=== PATIENT | male | born 1935 | race Caucasian/White ===

== ENCOUNTER 2018-07-12 02:35 | Inpatient (IN) | payer MEDICARE, BC ==
[2018-07-12] MEDS ORDERED: Nitroglycerin 2% Oint 1 GM UD Packet TOP ONE (03:03)
[2018-07-12] MEDS ORDERED: Aspirin 81 MG Tab.Chew PO ONE (03:03)
[2018-07-12] MEDS ORDERED: Sodium Chloride 0.9% 10 ML Syringe FLUSH PRN (03:03)
[2018-07-12] MEDS ORDERED: Meclizine 12.5 MG Tab PO ONE (03:03)
[2018-07-12] MEDS ORDERED: Ondansetron 4 MG/2 ML SDV IVPUSH ONE (03:03)
--- NOTE | 2018-07-12 03:04 | EDM.PDOC ---
ED HPI GENERAL MEDICAL PROBLEM - General Chief Complaint: Cardiovascular Problem Stated Complaint: DIZZY/NAUSEA Time Seen by Provider: 07/12/18 02:50 Source of Information: Reports: Patient, RN Notes Reviewed - History of Present Illness INITIAL COMMENTS - FREE TEXT/NARRATIVE: 82 year old male had onset of vertigo type dizziness a few hours ago associated with nausea, chest tightness. He does feel better now after arrival to ED. Hx of aortic valve replacement and aneurysm repair about 14 yrs ago. Takes baby aspirin along with his other meds daily. No abd pain. Has not vomited. No radiation of discomfort to chest, shoulder, arm or back. Chest Pain Score (Numeric/FACES): 5 - Related Data Allergies Allergy/AdvReac Type Severity Reaction Status Date / Time No Known Allergies Allergy Verified 07/12/18 02:49 Home Meds: Home Meds Aspirin [Halfprin] 81 mg PO DAILY 10/22/14 [History] Cyanocobalamin (Vitamin B12) [Vitamin B12] 1,000 mcg PO DAILY 10/22/14 [History] Donepezil HCl [Aricept] 10 mg PO BEDTIME 10/22/14 [History] Finasteride [Proscar] 5 mg PO DAILY 10/22/14 [History] Fish Oil/DHA/EPA [Fish Oil 1,200 MG] 1,200 mg PO DAILY 10/22/14 [History] Escitalopram [Lexapro] 20 mg PO BEDTIME 07/12/18 [History] Non-Formulary Medication [NF Drug] 1 cap PO DAILY 07/12/18 [History] Non-Formulary Medication [NF Drug] 1 tab PO BID 07/12/18 [History] Non-Formulary Medication [NF Drug] 1 tab PO BID 07/12/18 [History] Past Medical History HEENT History: Reports: Other (See Below) Other HEENT History: corneal abrasion Genitourinary History: Reports: BPH, Chronic Renal Insuffiency, Pyelonephritis, UTI, Recurrent Neurological History: Reports: Alzheimers Disease Other Neuro History: on aricept Other Dermatologic 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 Denies: Throat Pain Respiratory: Denies: Shortness of Breath, Pleuritic Chest Pain Cardiovascular: Reports: Chest Pain (gone) GI/Abdominal: Reports: Diarrhea (had 1 or 2 loose stools), Nausea. Denies: Abdominal Pain, Vomiting Musculoskeletal: Denies: Neck Pain, Shoulder Pain, Arm Pain, Back Pain Skin: Reports: No Symptoms Neurological: Reports: Dizziness (now much better). Denies: Trouble Speaking, Difficulty Walking ED EXAM, GENERAL - Physical Exam Exam: See Below General Appearance: Alert, Anxious (mild) Eye Exam: Bilateral Eye: Other (L pupil mildly irregular from prior cataract surgery) Ears: Normal External Exam, Other (small amt of fluid posterior to R TM) Throat/Mouth: Normal Inspection, Normal Oropharynx Head: Atraumatic. No: Facial Swelling Neck: Supple, Full Range of Motion, Other (no JVD) Respiratory/Chest: No Respiratory Distress, Lungs Clear, Normal Breath Sounds Cardiovascular: Regular Rate, Rhythm GI/Abdominal: Soft, Non-Tender. No: Guarding Extremities: Normal Inspection. No: Pedal Edema, Leg Pain, Increased Warmth, Redness Neurological: Alert, Oriented, No Motor/Sensory Deficits Skin Exam: Warm, Dry, Normal Color EKG INTERPRETATION EKG Date: 07/12/18 Rhythm: NSR [place]: Normal P-Wave: Present QRS: Other (there are q waves inf. leads) ST-T: Normal Course - Vital Signs Last Recorded V/S: Last Vital Signs Temp 98.8 F 07/12/18 23:22 Pulse 68 07/12/18 23:22 Resp 12 07/12/18 23:22 BP 148/87 H 07/12/18 23:22 Pulse Ox 94 L 07/12/18 23:22 - Orders/Labs/Meds Orders: Active Orders 24 hr Category Date Time Status Sodium Chloride 0.9% [Saline Flush] Med 07/12/18 03:03 Active 10 ml FLUSH ASDIRECTED PRN Peripheral IV Insertion Adult [OM.PC] Stat Oth 07/12/18 03:02 Ordered Medication Orders Aspirin (Halfprin) 81 mg PO DAILY AUNDREA Citalopram Hydrobromide (Celexa) 40 mg PO BEDTIME AUNDREA Last Admin: 07/12/18 21:06 Dose: 40 mg Cyanocobalamin (Vitamin B12) 1,000 mcg PO DAILY [facility] Donepezil HCl (Aricept) 10 mg PO BEDTIME [facility] Last Admin: 07/12/18 21:06 Dose: 10 mg Enoxaparin Sodium (Lovenox) 40 mg SUBCUT Q24H [facility] [place] Last Admin: 07/12/18 21:05 Dose: 40 mg Finasteride (Proscar) 5 mg PO DAILY [facility] Fish Oil (Fish Oil) 1 gm PO DAILY [facility] [place] Sodium Chloride (Saline Flush) 10 ml FLUSH ASDIRECTED PRN PRN Reason: Keep Vein Open Last Admin: 07/12/18 03:18 Dose: 10 ml Labs: Laboratory Tests 07/12/18 07/12/18 07/12/18 Range/Units 02:45 02:45 05:35 WBC 6.27 (4.23-9.07) K/mm3 RBC 4.37 L (4.63-6.08) M/mm3 Hgb 12.9 L (13.7-17.5) gm/L Hct 40.3 (40.1-51.0) % MCV 92.2 (79.0-92.2) fl MCH 29.5 (25.7-32.2) pg MCHC 32.0 L (32.2-35.5) g/dl RDW Std Deviation 48.9 H (35.1-43.9) fL Plt Count 121 L (163-337) K/mm3 MPV 9.9 (9.4-12.3) fl Neut % (Auto) 55.5 (34.0-67.9) % Lymph % (Auto) 28.5 (21.8-53.1) % [place] % (Auto) 13.2 H (5.3-12.2) % Eos % (Auto) 2.6 (0.8-7.0) Baso % (Auto) 0.0 L (0.1-1.2) % Neut # (Auto) 3.48 (1.78-5.38) K/mm3 Lymph # (Auto) 1.79 (1.32-3.57) K/mm3 [place] # (Auto) 0.83 H (0.30-0.82) K/mm3 Eos # (Auto) 0.16 (0.04-0.54) K/mm3 Baso # (Auto) 0.00 L (0.01-0.08) K/mm3 Sodium 143 (136-145) mEq/L Potassium 4.4 (3.5-5.1) mEq/L Chloride 106 (98-107) mEq/L Carbon Dioxide 30 (21-32) mEq/L Anion Gap 11.4 (5-15) BUN 25 H (7-18) mg/dL Creatinine 1.0 (0.7-1.3) mg/dL Est Cr Clr Drug Dosing 61.70 mL/min Estimated GFR (MDRD) > 60 (>60) mL/min BUN/Creatinine Ratio 25.0 H (14-18) Glucose 110 (83-115) mg/dL Calcium 9.1 (8.5-10.1) mg/dL Total Bilirubin 0.4 (0.2-1.0) mg/dL AST 18 (15-37) U/L ALT 22 (16-63) U/L Alkaline Phosphatase 59 (46-116) U/L Troponin I < 0.017 0.036 (0.00-0.056) ng/mL Total Protein 7.3 (6.4-8.2) g/dl Albumin 3.9 (3.4-5.0) g/dl Globulin 3.4 gm/dL Albumin/Globulin Ratio 1.2 (1-2) Meds: Medications Generic Name Dose Route Start Last Admin Trade Name Freq PRN Reason Stop Dose Admin Aspirin 81 mg 07/13/18 09:00 Halfprin PO DAILY AUNDREA Citalopram Hydrobromide 40 mg 07/12/18 21:00 07/12/18 21:06 Celexa PO 40 mg BEDTIME AUNDREA Administration Cyanocobalamin 1,000 mcg 07/13/18 09:00 Vitamin B12 PO DAILY AUNDREA Donepezil HCl 10 mg 07/12/18 21:00 07/12/18 21:06 Aricept PO 10 mg BEDTIME AUNDREA Administration Enoxaparin Sodium 40 mg 07/12/18 20:00 07/12/18 21:05 Lovenox SUBCUT 40 mg Q24H AUNDREA Administration Finasteride 5 mg 07/13/18 09:00 Proscar PO DAILY AUNDREA Fish Oil 1 gm 07/13/18 09:00 Fish Oil PO DAILY AUNDREA Sodium Chloride 10 ml 07/12/18 03:03 07/12/18 03:18 Saline Flush FLUSH 10 ml ASDIRECTED PRN Administration Keep Vein Open Discontinued Medications Generic Name Dose Route Start Last Admin Trade Name Dede PRN Reason Stop Dose Admin Aspirin 162 mg 07/12/18 03:03 07/12/18 03:17 Aspirin PO 07/12/18 03:04 162 mg ONETIME ONE Administration Sodium Chloride 100 mls @ 60 mls/hr 07/12/18 14:30 07/12/18 15:13 Normal Saline IV 60 mls/hr ASDIRECTED AUNDREA Administration Iopamidol 100 ml 07/12/18 14:28 07/12/18 15:11 Isovue-370 (76%) IVPUSH 07/12/18 14:29 100 ml ONETIME ONE Administration Meclizine HCl 12.5 mg 07/12/18 03:03 07/12/18 03:17 Antivert PO 07/12/18 03:04 12.5 mg ONETIME ONE Administration Nitroglycerin 1 gm 07/12/18 03:03 07/12/18 03:17 Nitro-Bid 2% TOP 07/12/18 03:04 1 gm ONETIME ONE Administration Ondansetron HCl 4 mg 07/12/18 03:03 07/12/18 03:17 Zofran IVPUSH 07/12/18 03:04 4 mg ONETIME ONE Administration Sodium Chloride 10 ml 07/12/18 14:28 07/12/18 15:11 Saline Flush FLUSH 07/12/18 14:29 10 ml ONETIME ONE Administration - Re-Assessments/Exams Free Text/Narrative Re-Assessment/Exam: 07/12/18 04:05 EKG did not show any acute changes. He was up to the bathroom a short time ago and did well with that, still has mild vertigo with motion. Initial trop neg., CXR other labs normal. It appears his major problem is vertigo that triggered his other sx. He is not more relaxed, resting comfortably, will repeat a 2 hr trop prior to discharge. 07/12/18 07:00. 2nd trop has come back very mildly elevated from the first at .036. I have discussed this with Dr Walker, will admit to Med Surg Telemetry to R/O for ID, further monitering of dizziness, r/O arrythmia with trop elevating mildly. She has asked we get a CT of his head first. Departure - Departure Time of Disposition: 06:30 Disposition: Admitted As Inpatient 67 Condition: Fair Clinical Impression: Labyrinthitis Qualifiers: Laterality: unspecified laterality Qualified Code(s): H83.09 - Labyrinthitis, unspecified ear Chest pain Qualifiers: Chest pain type: unspecified Qualified Code(s): R07.9 - Chest pain, unspecified ED Communication - Discussed Case With (1) Discussed Case With (1): Admitting Provider (Dr Walker, decision to admit at about 07:05) - My Orders Last 24 Hours: My Active Orders 07/12/18 03:02 Peripheral IV Insertion Adult [OM.PC] Stat 07/12/18 03:03 Sodium Chloride 0.9% [Saline Flush] 10 ml FLUSH ASDIRECTED PRN - Assessment/Plan Last 24 Hours: My Active Orders 07/12/18 03:02 Peripheral IV Insertion Adult [OM.PC] Stat 07/12/18 03:03 Sodium Chloride 0.9% [Saline Flush] 10 ml FLUSH ASDIRECTED PRN
--- NOTE | 2018-07-12 06:59 | CR ---
Chest: Portable view of the chest was obtained. Comparison: Prior chest x-ray of 02/07/[address] chest of 07/24/14. Heart size is normal. Tortuous thoracic aorta is seen. Lungs are clear. Prior sternotomy is noted. Bony structures are grossly intact. Impression: 1. Nothing acute is appreciated on portable chest x-ray. Diagnostic code #1
--- NOTE | 2018-07-12 07:42 | CT ---
Head CT Technique: Multiple axial sections through the brain were obtained. Intravenous contrast was not utilized. Comparison: Prior head CT study of 04/08/15. Findings: Ventricles along with basal cisterns and sulci over the convexities are mildly prominent. Diminished density is noted within portions of the periventricular and subcortical white matter which is compatible with small vessel ischemic demyelination change. 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 No other abnormal parenchymal densities are seen. No evidence of intracranial hemorrhage. No midline shift or mass effect is seen. Bone window settings were reviewed which shows no acute calvarial abnormality. 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 Minimal mucosal thickening is seen within the left maxillary sinus. Impression: 1. Senescent change. Incidental sinus findings. 2. No acute intracranial abnormality is identified on noncontrast head CT exam. Diagnostic code #2
[2018-07-12] MEDS ORDERED: Sodium Chloride 0.9% 10 ML Syringe FLUSH ONE (14:28)
[2018-07-12] MEDS ORDERED: Iopamidol 755 Mg/ML 100 ML Bottle IVPUSH ONE (14:28)
[2018-07-12] MEDS ORDERED: Sodium Chloride 0.9% 100 ML IV SCH (14:30)
--- NOTE | 2018-07-12 15:44 | CT ---
CT angiogram of neck Technique: Multiple axial sections through the neck were obtained. Intravenous contrast was utilized. Multiple MIP images were obtained. Findings: Common carotid arteries on both sides appear patent. Proximal external carotid arteries on both sides showed no significant stenosis. Internal carotid arteries on both sides also appears patent with no stenosis. No dissection is seen. No occlusion is identified. Both vertebral arteries are patent. Impression: 1. No focal stenosis, occlusion or dissection is seen within the common carotid arteries, ECA, ICA or vertebral arteries. Diagnostic code #1
--- NOTE | 2018-07-12 19:00 | PCM.HP ---
H&P History of Present Illness - General Date of Service: 07/12/18 Admit Problem/Dx: Admission Diagnosis/Problem Admission Diagnosis/Problem Labyrinthine disorder Source of Information: Patient, Provider History Limitations: Reports: No Limitations - History of Present Illness Initial Comments - Free Text/Narative: 82 year old male from home presents with dizziness, this was associated with chest pain. As well as nausea without vomiting, the patient denies a history of coronary disease. PMH: BPH; CKD; Alzheimers dementia. The patient lives a home with his . Onset of Symptoms: Reports: Unknown/Unsure Symptom Onset Date: 07/11/18 Duration of Symptoms: Reports: Hour(s):, Getting Worse Location: Reports: Generalized Severity: Moderate Improves with: Reports: Medication Worsens with: Reports: None Associated Symptoms: Reports: Weakness Chest Pain Score (Numeric/FACES): 5 - Related Data Allergies/Adverse Reactions: Allergies Allergy/AdvReac Type Severity Reaction Status Date / Time No Known Allergies Allergy Verified 07/12/18 02:49 Home Medications: Home Meds Aspirin [Halfprin] 81 mg PO DAILY 10/22/14 [History] Cyanocobalamin (Vitamin B12) [Vitamin B12] 1,000 mcg PO DAILY 10/22/14 [History] Donepezil HCl [Aricept] 10 mg PO BEDTIME 10/22/14 [History] Finasteride [Proscar] 5 mg PO DAILY 10/22/14 [History] Fish Oil/DHA/EPA [Fish Oil 1,200 MG] 1,200 mg PO DAILY 10/22/14 [History] Escitalopram [Lexapro] 20 mg PO BEDTIME 07/12/18 [History] Non-Formulary Medication [NF Drug] 1 cap PO DAILY 07/12/18 [History] Non-Formulary Medication [NF Drug] 1 tab PO BID 07/12/18 [History] Non-Formulary Medication [NF Drug] 1 tab PO BID 07/12/18 [History] Past Medical History HEENT History: Reports: Cataract, Other (See Below) Other HEENT History: corneal abrasion Genitourinary History: Reports: BPH, Chronic Renal Insuffiency, Pyelonephritis, UTI, Recurrent Neurological History: Reports: Alzheimers Disease Other Neuro History: on aricept Other Dermatologic 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 - Past Surgical History Other HEENT Surgeries/Procedures: hearing aide Cardiovascular Surgical History: Reports: Aneurysm, Valve Replacement Social & Family History - Tobacco Use Smoking Status *Q: Former Smoker Years of Tobacco use: 4 Used Tobacco, but Quit: Yes Month/Year Tobacco Last Used: 1959 - Caffeine Use Caffeine Use: Reports: Coffee - Recreational Drug Use Recreational Drug Use: No H&P Review of Systems - Review of Systems: Review Of Systems: See Below General: Reports: Weakness HEENT: Reports: No Symptoms Pulmonary: Reports: No Symptoms Cardiovascular: Reports: Chest Pain Gastrointestinal: Reports: Diarrhea, Nausea Genitourinary: Reports: No Symptoms Musculoskeletal: Reports: No Symptoms Skin: Reports: No Symptoms Psychiatric: Reports: No Symptoms Neurological: Reports: Dizziness Hematologic/Lymphatic: Reports: No Symptoms Immunologic: Reports: No Symptoms Exam - Exam Exam: See Below - Vital Signs Vital Signs: Last Vital Signs Temp 36.7 C 07/12/18 15:41 Pulse 57 L 07/12/18 15:41 Resp 16 07/12/18 15:41 BP 137/71 07/12/18 15:41 Pulse Ox 94 L 07/12/18 15:41 Weight: 81.647 kg - Exam General: Alert, Oriented, Cooperative HEENT: Conjunctiva Clear, EOMI, Hearing Intact, Nares Patent, Normal Nasal Septum, Pupils Equal, Pupils Reactive, PERRLA Neck: Trachea Midline Lungs: Normal Respiratory Effort Cardiovascular: Regular Rate, Regular Rhythm GI/Abdominal Exam: Normal Bowel Sounds, Soft, Non-Tender, No Organomegaly, No Distention (Male) Exam: Deferred Rectal (Males) Exam: Deferred Back Exam: Normal Inspection Extremities: Normal Inspection, Non-Tender, Normal Capillary Refill Skin: Warm Neurological: Cranial Nerves Intact Neuro Extensive - Mental Status: Alert Neuro Extensive - Motor, Sensory, Reflexes: CN II-XII Intact Psychiatric: Alert - Patient Data Lab Results Last 24 hrs: Laboratory Results - last 24 hr 07/12/18 07/12/18 07/12/18 Range/Units 02:45 02:45 05:35 WBC 6.27 (4.23-9.07) K/mm3 RBC 4.37 L (4.63-6.08) M/mm3 Hgb 12.9 L (13.7-17.5) gm/L Hct 40.3 (40.1-51.0) % MCV 92.2 (79.0-92.2) fl MCH 29.5 (25.7-32.2) pg MCHC 32.0 L (32.2-35.5) g/dl RDW Std Deviation 48.9 H (35.1-43.9) fL Plt Count 121 L (163-337) K/mm3 MPV 9.9 (9.4-12.3) fl Neut % (Auto) 55.5 (34.0-67.9) % Lymph % (Auto) 28.5 (21.8-53.1) % [place] % (Auto) 13.2 H (5.3-12.2) % Eos % (Auto) 2.6 (0.8-7.0) Baso % (Auto) 0.0 L (0.1-1.2) % Neut # (Auto) 3.48 (1.78-5.38) K/mm3 Lymph # (Auto) 1.79 (1.32-3.57) K/mm3 [place] # (Auto) 0.83 H (0.30-0.82) K/mm3 Eos # (Auto) 0.16 (0.04-0.54) K/mm3 Baso # (Auto) 0.00 L (0.01-0.08) K/mm3 Sodium 143 (136-145) mEq/L Potassium 4.4 (3.5-5.1) mEq/L Chloride 106 (98-107) mEq/L Carbon Dioxide 30 (21-32) mEq/L Anion Gap 11.4 (5-15) BUN 25 H (7-18) mg/dL Creatinine 1.0 (0.7-1.3) mg/dL Est Cr Clr Drug Dosing 61.70 mL/min Estimated GFR (MDRD) > 60 (>60) mL/min BUN/Creatinine Ratio 25.0 H (14-18) Glucose 110 (83-115) mg/dL Calcium 9.1 (8.5-10.1) mg/dL Total Bilirubin 0.4 (0.2-1.0) mg/dL AST 18 (15-37) U/L ALT 22 (16-63) U/L Alkaline Phosphatase 59 (46-116) U/L Troponin I < 0.017 0.036 (0.00-0.056) ng/mL Total Protein 7.3 (6.4-8.2) g/dl Albumin 3.9 (3.4-5.0) g/dl Globulin 3.4 gm/dL Albumin/Globulin Ratio 1.2 (1-2) Result Diagrams: 07/13/18 05:43 07/13/18 05:43 Problem List Initiated/Reviewed/Updated: Yes Orders Last 24hrs: Active Orders 24 hr Category Date Time Status Patient Status [ADT] Routine ADT 07/12/18 08:07 Active EKG Documentation Completion [RC] ASDIRECTED Care 07/12/18 09:40 Active Consult to Case Management/Office Mover [CONS] Cons 07/12/18 13:40 Active Routine OT Evaluation and Treatment [CONS] Routine Cons 07/12/18 13:41 Active PT Evaluation and Treatment [CONS] Routine Cons 07/12/18 13:40 Active PT Evaluation and Treatment [CONS] Routine Cons 07/12/18 14:25 Active Heart Healthy Diet [DIET] Diet 07/12/18 Dinner Active Echo Comp wo Cont [US] Routine Exams 07/13/18 09:00 Ordered Aspirin [Halfprin] Med 07/13/18 09:00 Active 81 mg PO DAILY Citalopram [Celexa] Med 07/12/18 21:00 Active 40 mg PO BEDTIME Cyanocobalamin (Vitamin B12) [Vitamin B12] Med 07/13/18 09:00 Active 1,000 mcg PO DAILY Donepezil [Aricept] Med 07/12/18 21:00 Active 10 mg PO BEDTIME Finasteride [Proscar] Med 07/13/18 09:00 Active 5 mg PO DAILY Fish Oil/[place]-3 Fatty Acids [Fish Oil] Med 07/13/18 09:00 Active 1 gm PO DAILY Sodium Chloride 0.9% [Saline Flush] Med 07/12/18 03:03 Active 10 ml FLUSH ASDIRECTED PRN Peripheral IV Insertion Adult [OM.PC] Stat Oth 07/12/18 03:02 Ordered Resuscitation Status Routine Resus Stat 07/12/18 08:37 Ordered EKG 12 Lead [EK] Stat Ther 07/12/18 09:39 Ordered Medication Orders Aspirin (Halfprin) 81 mg PO DAILY AUNDREA Citalopram Hydrobromide (Celexa) 40 mg PO BEDTIME AUNDREA Cyanocobalamin (Vitamin B12) 1,000 mcg PO DAILY AUNDREA Donepezil HCl (Aricept) 10 mg PO BEDTIME AUNDREA Finasteride (Proscar) 5 mg PO DAILY AUNDREA Fish Oil (Fish Oil) 1 gm PO DAILY AUNDREA Sodium Chloride (Saline Flush) 10 ml FLUSH ASDIRECTED PRN PRN Reason: Keep Vein Open Last Admin: 07/12/18 03:18 Dose: 10 ml Assessment/Plan Comment:: Impression: Dizziness, doubt vertigo History of AVR, doubt valvular dysfunction Query TIA/CVA; CT of head w/o contrast, WNL Query posterior circulation obstruction Chronic Alzheimers dementia BPH CKD Plan: Ischemic work up, serial troponin Infectious work up--check UA (hx of recurrent UTIs) AVR-2D echo for function/LVEF/WMA CTA of head/neck Neuro checks Swallow eval Consult PT/OT; vestibular assessment DVT/GI prophylaxis
[2018-07-12] MEDS ORDERED: Enoxaparin 40 MG/0.4 ML Syringe SUBCUT SCH (20:00)
[2018-07-12] MEDS ORDERED: Citalopram 20 MG Tab PO SCH (21:00)
[2018-07-12] MEDS ORDERED: Donepezil 10 MG Tab PO SCH (21:00)
[2018-07-13 07:39] VITALS: BP 128/79
[2018-07-13] MEDS ORDERED: Finasteride 5 MG Tab PO SCH (09:00)
[2018-07-13] MEDS ORDERED: Aspirin 81 MG Tab.EC PO SCH (09:00)
[2018-07-13] MEDS ORDERED: Fish Oil/Omega-3 Fatty Acids 1 Gm Cap PO SCH (09:00)
[2018-07-13] MEDS ORDERED: Cyanocobalamin (Vitamin B12) 1,000 MCG Tab PO SCH (09:00)
--- NOTE | 2018-07-13 12:08 | PCM.DCSUM1 ---
Discharge Summary - Hospital Course Free Text/Narrative:: 82 year old male with dementia was evaluated for a CVA/TIA as well as cardiac concerns (ischemia, valvular dysfunction) and/or vestibular disease. The patient had multiple radiographic studies, 2D echo and lab studies that were minimally abnormal or unremarkable. He had dehydration that was addressed, nausea with slow advancement of his diet. He did not have a TIA, TN, arrhythmia , valvular dysfunction or vertigo. The acute renal insufficiency resolved with hydration. Correction of abnormal electrolytes were completed as needed. He is expected to follow up with is PCP in 2-3 weeks. HPI Initial Comments: 2 year old male from home presents with dizziness, this was associated with chest pain. As well as nausea without vomiting, the patient denies a history of coronary disease. PMH: BPH; CKD; Alzheimers dementia. The patient lives a home with his . Diagnosis: Stroke: No - Discharge Data Discharge Date: 07/13/18 Discharge Disposition: Home, Self-Care 01 Condition: Good - Patient Summary/Data Consults: Consultations 07/12/18 13:40 Consult to Case Management/Dark Room Attendant [CONS] Routine PT Evaluation and Treatment [CONS] Routine 07/12/18 13:41 OT Evaluation and Treatment [CONS] Routine 07/12/18 14:25 PT Evaluation and Treatment [CONS] Routine - Patient Instructions Diet: Heart Healthy Diet Activity: As Tolerated Driving: Do Not Drive Showering/Bathing: May Shower Notify Provider of: Fever, Increased Pain, Nausea and/or Vomiting - Discharge Plan *PRESCRIPTION DRUG MONITORING PROGRAM REVIEWED*: Not Applicable *COPY OF PRESCRIPTION DRUG MONITORING REPORT IN PATIENT RAMBO: Not Applicable Home Medications: Home Meds Aspirin [Halfprin] 81 mg PO DAILY 10/22/14 [History] Cyanocobalamin (Vitamin B12) [Vitamin B12] 1,000 mcg PO DAILY 10/22/14 [History] Donepezil HCl [Aricept] 10 mg PO BEDTIME 10/22/14 [History] Finasteride [Proscar] 5 mg PO DAILY 10/22/14 [History] Fish Oil/DHA/EPA [Fish Oil 1,200 MG] 1,200 mg PO DAILY 10/22/14 [History] Escitalopram [Lexapro] 20 mg PO BEDTIME 07/12/18 [History] Non-Formulary Medication [NF Drug] 1 cap PO DAILY 07/12/18 [History] Non-Formulary Medication [NF Drug] 1 tab PO BID 07/12/18 [History] Non-Formulary Medication [NF Drug] 1 tab PO BID 07/12/18 [History] Oxygen Therapy Mode: Room Air Patient Handouts: Benign Prostatic Hyperplasia, Dehydration, Elderly, Easy-to- Read Referrals: Antonio Barillas MD [Primary Care Provider] - 07/20/18 2:45 pm (Please follow-up with your primary care provider, Dr. Barillas, on WednesdayJuly 20 at 02:45pm. ) - Discharge Summary/Plan Comment DC Time >30 min.: No Discharge Summary/Plan Comment: Impression: Dizziness, doubt vertigo History of AVR, doubt valvular dysfunction Query TIA/CVA; CT of head w/o contrast, WNL Query posterior circulation obstruction Chronic Alzheimers dementia BPH CKD Plan: Ischemic work up, serial troponin Infectious work up--check UA (hx of recurrent UTIs) AVR-2D echo for function/LVEF/WMA CTA of head/neck Neuro checks Swallow eval Consult PT/OT; vestibular assessment DVT/GI prophylaxis - General Info Date of Service: 07/12/18 Functional Status: Reports: Tolerating Diet, Ambulating, Urinating - Review of Systems General: Reports: No Symptoms HEENT: Reports: No Symptoms Pulmonary: Reports: No Symptoms Cardiovascular: Reports: No Symptoms Gastrointestinal: Reports: No Symptoms Genitourinary: Reports: No Symptoms Musculoskeletal: Reports: No Symptoms Skin: Reports: No Symptoms Neurological: Reports: No Symptoms Psychiatric: Reports: No Symptoms - Patient Data Vitals - Most Recent: Last Vital Signs Temp 36.9 C 07/13/18 07:25 Pulse 65 07/13/18 07:25 Resp 14 07/13/18 07:25 BP 128/79 07/13/18 07:25 Pulse Ox 94 L 07/13/18 07:25 Weight - Most Recent: 81.647 kg I&O - Last 24 hours: Intake & Output 07/12/18 07/13/18 07/13/18 22:59 06:59 14:59 Intake Total 960 600 160 Output Total 700 580 Balance 260 20 160 Lab Results - Last 24 hrs: Laboratory Results - last 24 hr 07/12/18 07/13/18 07/13/18 Range/Units 21:00 05:43 05:43 WBC 7.14 (4.23-9.07) K/mm3 RBC 4.12 L (4.63-6.08) M/mm3 Hgb 12.0 L (13.7-17.5) gm/L Hct 38.0 L (40.1-51.0) % MCV 92.2 (79.0-92.2) fl MCH 29.1 (25.7-32.2) pg MCHC 31.6 L (32.2-35.5) g/dl RDW Std Deviation 48.9 H (35.1-43.9) fL Plt Count 117 L (163-337) K/mm3 MPV 10.7 (9.4-12.3) fl Neut % (Auto) 60.0 (34.0-67.9) % Lymph % (Auto) 26.1 (21.8-53.1) % Wilkes % (Auto) 12.2 (5.3-12.2) % Eos % (Auto) 1.3 (0.8-7.0) Baso % (Auto) 0.1 (0.1-1.2) % Neut # (Auto) 4.29 (1.78-5.38) K/mm3 Lymph # (Auto) 1.86 (1.32-3.57) K/mm3 Wilkes # (Auto) 0.87 H (0.30-0.82) K/mm3 Eos # (Auto) 0.09 (0.04-0.54) K/mm3 Baso # (Auto) 0.01 (0.01-0.08) K/mm3 Sodium 142 (136-145) mEq/L Potassium 4.3 (3.5-5.1) mEq/L Chloride 105 (98-107) mEq/L Carbon Dioxide 28 (21-32) mEq/L Anion Gap 13.3 (5-15) BUN 17 (7-18) mg/dL Creatinine 0.8 (0.7-1.3) mg/dL Est Cr Clr Drug Dosing 77.13 mL/min Estimated GFR (MDRD) > 60 (>60) mL/min BUN/Creatinine Ratio 21.3 H (14-18) Glucose 97 (83-115) mg/dL Calcium 8.7 (8.5-10.1) mg/dL Magnesium 2.0 (1.8-2.4) mg/dl Troponin I < 0.017 (0.00-0.056) ng/mL C-Reactive Protein 0.8 (<1.0) mg/dL Triglycerides 89 (<150) mg/dL Cholesterol 194 (<200) mg/dL LDL Cholesterol Direct 129 H* (<100) mg/dL HDL Cholesterol 46.0 (40-59) mg/dL Urine Color Light yellow (Yellow) Urine Appearance Clear (Clear) Urine pH 6.5 (5.0-8.0) Ur Specific [place] 1.020 (1.005-1.030) Urine Protein Negative (Negative) Urine Glucose (UA) Negative (Negative) Urine Ketones Negative (Negative) Urine Occult Blood Negative (Negative) Urine Nitrite Negative (Negative) Urine Bilirubin Negative (Negative) Urine Urobilinogen 0.2 (0.2-1.0) Ur Leukocyte Esterase Negative (Negative) Urine RBC 0-5 (0-5) /hpf Urine WBC 0-5 (0-5) /hpf Ur Epithelial Cells 0-5 (0-5) /hpf Urine Bacteria Occasional (FEW) /hpf Urine Mucus Not seen (FEW) /hpf Med Orders - Current: Current Medications Aspirin (Halfprin) 81 mg PO DAILY [facility] Last Admin: 07/13/18 08:49 Dose: 81 mg Citalopram Hydrobromide (Celexa) 40 mg PO BEDTIME [facility] Last Admin: 07/12/18 21:06 Dose: 40 mg Cyanocobalamin (Vitamin B12) 1,000 mcg PO DAILY [facility] Last Admin: 07/13/18 08:49 Dose: 1,000 mcg Donepezil HCl (Aricept) 10 mg PO BEDTIME [facility] Last Admin: 07/12/18 21:06 Dose: 10 mg Enoxaparin Sodium (Lovenox) 40 mg SUBCUT Q24H [facility] Last Admin: 07/12/18 21:05 Dose: 40 mg Finasteride (Proscar) 5 mg PO DAILY [facility] Last Admin: 07/13/18 08:49 Dose: 5 mg Fish Oil (Fish Oil) 1 gm PO DAILY [facility] Last Admin: 07/13/18 08:49 Dose: 1 gm Sodium Chloride (Saline Flush) 10 ml FLUSH ASDIRECTED PRN PRN Reason: Keep Vein Open Last Admin: 07/12/18 03:18 Dose: 10 ml Discontinued Medications Aspirin (Aspirin) 162 mg PO ONETIME ONE Stop: 07/12/18 03:04 Last Admin: 07/12/18 03:17 Dose: 162 mg Sodium Chloride (Normal Saline) 100 mls @ 60 mls/hr IV ASDIRECTED AUNDREA Last Admin: 07/12/18 15:13 Dose: 60 mls/hr Iopamidol (Isovue-370 (76%)) 100 ml IVPUSH ONETIME ONE Stop: 07/12/18 14:29 Last Admin: 07/12/18 15:11 Dose: 100 ml Meclizine HCl (Antivert) 12.5 mg PO ONETIME ONE Stop: 07/12/18 03:04 Last Admin: 07/12/18 03:17 Dose: 12.5 mg Nitroglycerin (Nitro-Bid 2%) 1 gm TOP ONETIME ONE Stop: 07/12/18 03:04 Last Admin: 07/12/18 03:17 Dose: 1 gm Ondansetron HCl (Zofran) 4 mg IVPUSH ONETIME ONE Stop: 07/12/18 03:04 Last Admin: 07/12/18 03:17 Dose: 4 mg Sodium Chloride (Saline Flush) 10 ml FLUSH ONETIME ONE Stop: 07/12/18 14:29 Last Admin: 07/12/18 15:11 Dose: 10 ml - Exam Quality Assessment: Reports: DVT Prophylaxis General: Reports: Alert, Oriented, Cooperative, No Acute Distress HEENT: Reports: Pupils Equal, Pupils Reactive, EOMI Neck: Reports: Trachea Midline, No JVD Lungs: Reports: Normal Respiratory Effort Cardiovascular: Reports: Regular Rate, Murmurs GI/Abdominal Exam: Normal Bowel Sounds, Soft, Non-Tender, No Organomegaly, No Distention (Male) Exam: Deferred Rectal (Males) Exam: Deferred Back Exam: Reports: Normal Inspection Extremities: Normal Inspection, Non-Tender, Normal Capillary Refill Skin: Reports: Warm Neurological: Reports: No New Focal Deficit Psy/Mental Status: Reports: Alert, Normal Affect, Normal Mood
== END 2018-07-13 13:21 | disposition home or self-care (01) | DRG 641 ==
LOC: JD.ED 02:35 → JD.MS 08:07
PROVIDERS: ADMIT Internal Medicine Cardiovascular Disease; ATTEND Internal Medicine Cardiovascular Disease
DX: R42 Dizziness and giddiness (principal); R11.2 Nausea with vomiting, unspecified; E86.0 Dehydration; N28.9 Disorder of kidney and ureter, unspecified; G30.9 Alzheimer's disease, unspecified; F02.80 Dementia in other diseases classified elsewhere, unspecified severity, without behavioral disturbance, psychotic disturbance, mood disturbance, and anxiety; N40.0 Benign prostatic hyperplasia without lower urinary tract symptoms; R19.7 Diarrhea, unspecified; N18.9 Chronic kidney disease, unspecified; H83.09 Labyrinthitis, unspecified ear; R07.9 Chest pain, unspecified; R74.8 Abnormal levels of other serum enzymes; Z95.2 Presence of prosthetic heart valve; Z79.82 Long term (current) use of aspirin; Z87.440 Personal history of urinary (tract) infections; Z85.828 Personal history of other malignant neoplasm of skin; Z79.899 Other long term (current) drug therapy; Z87.891 Personal history of nicotine dependence
CPT/HCPCS: 36415; 70450; 71045; 80053; 84484 ×2; 85025; 93005; 96374; 99285; A9270 ×3; J2405; 70498; 70498-26; 80048; 80061; 81001; 83735; 86140; 87086; 93010; 93306; 97161-GP; 97165-GO; 97530-GO; 97530-GP; 99284; J1650; J7030; Q9967

== ENCOUNTER 2019-01-11 16:57 | Inpatient (IN) | payer MEDICARE, BC ==
[2019-01-11] MEDS ORDERED: Aspirin 81 MG Tab.Chew PO ONE (17:12)
[2019-01-11] MEDS ORDERED: Sodium Chloride 0.9% 10 ML Syringe FLUSH PRN (17:13)
--- NOTE | 2019-01-11 17:49 | EDM.PDOC ---
ED HPI GENERAL MEDICAL PROBLEM - General Chief Complaint: Cardiovascular Problem Stated Complaint: WEAKNESS,DIZZY,CHEST PAIN Time Seen by Provider: 01/11/19 17:39 Source of Information: Reports: Patient History Limitations: Reports: No Limitations - History of Present Illness INITIAL COMMENTS - FREE TEXT/NARRATIVE: 83-year-old male presents for evaluation and treatment of weakness, chest pain and shortness of breath. Reports symptoms started yesterday. At this time is chest pain free. Patient denies any nausea, vomiting or abdominal pain. Difficulty answering questions. Patient is slow to respond and looks to family for help with answers. patient is hard of hearing. reportedly the patient has been caring for his who was injured in a horse accident this past weekend. He has been under a great deal of stress. Patient found to be 88% on room air upon arrival to the ER. Left Chest Pain Score (Numeric/FACES): 5 - Related Data Allergies Allergy/AdvReac Type Severity Reaction Status Date / Time No Known Allergies Allergy Verified 01/11/19 17:04 Home Meds: Home Meds Aspirin [Halfprin] 81 mg PO DAILY 10/22/14 [History] Cyanocobalamin (Vitamin B12) [Vitamin B12] 1,000 mcg PO DAILY 10/22/14 [History] Donepezil HCl [Aricept] 10 mg PO BEDTIME 10/22/14 [History] Finasteride [Proscar] 5 mg PO DAILY 10/22/14 [History] Fish Oil/DHA/EPA [Fish Oil 1,200 MG] 1,200 mg PO DAILY 10/22/14 [History] Escitalopram [Lexapro] 20 mg PO BEDTIME 07/12/18 [History] Palmetoplex 1 tab PO DAILY 01/11/19 [History] Symplex M 1 tab PO DAILY 01/11/19 [History] Past Medical History HEENT History: Reports: Cataract, Other (See Below) Other HEENT History: corneal abrasion Respiratory History: Reports: None Gastrointestinal History: Reports: None Genitourinary History: Reports: BPH, Chronic Renal Insuffiency, Pyelonephritis, UTI, Recurrent Musculoskeletal History: Reports: None Neurological History: Reports: Alzheimers Disease Other Neuro History: on aricept Psychiatric History: Reports: None Endocrine/Metabolic History: Reports: None Hematologic History: Reports: Anemia Immunologic History: Reports: None Oncologic (Cancer) History: Reports: Other (See Below) Other Oncologic History: skin Other Dermatologic 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 - Infectious Disease History Infectious Disease History: Reports: None - Past Surgical History Head Surgeries/Procedures: Reports: None Other HEENT Surgeries/Procedures: hearing aide Cardiovascular Surgical History: Reports: Aneurysm, Valve Replacement Musculoskeletal Surgical History: Reports: None Social & Family History - Family History Family Medical History: Noncontributory - Tobacco Use Smoking Status *Q: Never Smoker - Caffeine Use Caffeine Use: Reports: Coffee - Recreational Drug Use Recreational Drug Use: No ED ROS GENERAL - Review of Systems Review Of Systems: See Below Constitutional: Reports: Weakness Respiratory: Reports: Shortness of Breath. Denies: Cough Cardiovascular: Reports: Chest Pain, Lightheadedness. Denies: Edema GI/Abdominal: Denies: Abdominal Pain, Nausea, Vomiting ED EXAM, GENERAL - Physical Exam Exam: See Below Exam Limited By: No Limitations General Appearance: Alert, WD/WN, No Apparent Distress Respiratory/Chest: No Respiratory Distress, Lungs Clear, Normal Breath Sounds Cardiovascular: Normal Peripheral Pulses, Regular Rate, Rhythm, No Rub GI/Abdominal: Soft, Non-Tender Neurological: Slow to Respond Psychiatric: Normal Affect, Normal Mood Skin Exam: Warm, Dry, Normal Color EKG INTERPRETATION EKG Date: 01/11/19 Time: 17:05 Rhythm: NSR Rate (Beats/Min): 93 [place]: Normal P-Wave: Present ST-T: Normal QT: Normal EKG Interpretation Comments: NSR at 93 bpm. Incomplete LBBB. Reviewed by myself and Dr. conroy. Course - Vital Signs Last Recorded V/S: Last Vital Signs Temp 99.2 F 01/11/19 17:11 Pulse 94 01/11/19 17:11 Resp 18 01/11/19 17:11 BP 138/79 01/11/19 17:11 Pulse Ox 91 L 01/11/19 21:14 - Orders/Labs/Meds Orders: Active Orders 24 hr Category Date Time Status Cardiac Monitoring [RC] . DIRECTED Care 01/11/19 17:12 Active EKG Documentation Completion [RC] ASDIRECTED Care 01/11/19 17:12 Active Oxygen Therapy [RC] ASDIRECTED Care 01/11/19 17:14 Active Peripheral IV Care [RC] . DIRECTED Care 01/11/19 17:13 Active RT Aerosol Therapy [RC] ASDIRECTED Care 01/11/19 21:14 Active Chest 1V Frontal [CR] Stat Exams 01/11/19 17:12 Taken CULTURE URINE [RM] Stat Lab 01/11/19 22:25 Received UA W/MICROSCOPIC [URIN] Stat Lab 01/11/19 22:25 Received Sodium Chloride 0.9% [Normal Saline] 1,000 ml Med 01/11/19 22:30 Active IV ASDIRECTED Sodium Chloride 0.9% [Normal Saline] 100 ml Med 01/11/19 19:00 Active IV ASDIRECTED Sodium Chloride 0.9% [Saline Flush] Med 01/11/19 17:13 Active 10 ml FLUSH ASDIRECTED PRN Peripheral IV Insertion Adult [OM.PC] Routine Oth 01/11/19 17:13 Ordered EKG 12 Lead [EK] Stat Ther 01/11/19 17:12 Ordered Medication Orders Sodium Chloride (Normal Saline) 100 mls @ 60 mls/hr IV ASDIRECTED AUNDREA Last Admin: 01/11/19 18:50 Dose: 60 mls/hr Sodium Chloride (Normal Saline) 1,000 mls @ 100 mls/hr IV ASDIRECTED AUNDREA Last Admin: 01/11/19 22:26 Dose: 100 mls/hr Sodium Chloride (Saline Flush) 10 ml FLUSH ASDIRECTED PRN PRN Reason: Keep Vein Open Last Admin: 01/11/19 17:49 Dose: 10 ml Labs: Laboratory Tests 01/11/19 01/11/19 01/11/19 Range/Units 17:10 17:10 17:10 WBC 11.16 H (4.23-9.07) K/mm3 RBC 3.82 L (4.63-6.08) M/mm3 Hgb 11.4 L (13.7-17.5) gm/L Hct 35.2 L (40.1-51.0) % MCV 92.1 (79.0-92.2) fl MCH 29.8 (25.7-32.2) pg MCHC 32.4 (32.2-35.5) g/dl RDW Std Deviation 47.8 H (35.1-43.9) fL Plt Count 80 L (163-337) K/mm3 MPV 11.2 (9.4-12.3) fl Neut % (Auto) 71.4 H (34.0-67.9) % Lymph % (Auto) 9.6 L (21.8-53.1) % [place] % (Auto) 18.3 H (5.3-12.2) % Eos % (Auto) 0.4 L (0.8-7.0) Baso % (Auto) 0.1 (0.1-1.2) % Neut # (Auto) 7.98 H (1.78-5.38) K/mm3 Lymph # (Auto) 1.07 L (1.32-3.57) K/mm3 [place] # (Auto) 2.04 H (0.30-0.82) K/mm3 Eos # (Auto) 0.04 (0.04-0.54) K/mm3 Baso # (Auto) 0.01 (0.01-0.08) K/mm3 Manual Slide Review Abnormal smear PT 11.5 (9.7-12.0) SECONDS INR 1.06 APTT 27 (22-31) SECONDS D-Dimer, Quantitative 2.08 H (0.19-0.50) mg/L Sodium 138 (136-145) mEq/L Potassium 4.4 (3.5-5.1) mEq/L Chloride 100 (98-107) mEq/L Carbon Dioxide 26 (21-32) mEq/L Anion Gap 16.4 H (5-15) BUN 15 (7-18) mg/dL Creatinine 0.9 (0.7-1.3) mg/dL Est Cr Clr Drug Dosing 69.02 mL/min Estimated GFR (MDRD) > 60 (>60) mL/min BUN/Creatinine Ratio 16.7 (14-18) Glucose 111 (83-115) mg/dL Calcium 9.5 (8.5-10.1) mg/dL Magnesium (1.8-2.4) mg/dl Total Bilirubin 0.7 (0.2-1.0) mg/dL AST 53 H (15-37) U/L ALT 56 (16-63) U/L Alkaline Phosphatase 109 (46-116) U/L CK-MB (CK-2) < 0.5 (0-3.6) ng/ml Troponin I < 0.017 (0.00-0.056) ng/mL C-Reactive Protein (<1.0) mg/dL NT-Pro-B Natriuret Pep (0-450) pg/mL Total Protein 7.0 (6.4-8.2) g/dl Albumin 3.4 (3.4-5.0) g/dl Globulin 3.6 gm/dL Albumin/Globulin Ratio 0.9 L (1-2) Lipase 122 (73-393) U/L 01/11/19 01/11/19 Range/Units 21:04 21:04 WBC (4.23-9.07) K/mm3 RBC (4.63-6.08) M/mm3 Hgb (13.7-17.5) gm/L Hct (40.1-51.0) % MCV (79.0-92.2) fl MCH (25.7-32.2) pg MCHC (32.2-35.5) g/dl RDW Std Deviation (35.1-43.9) fL Plt Count (163-337) K/mm3 MPV (9.4-12.3) fl Neut % (Auto) (34.0-67.9) % Lymph % (Auto) (21.8-53.1) % [place] % (Auto) (5.3-12.2) % Eos % (Auto) (0.8-7.0) Baso % (Auto) (0.1-1.2) % Neut # (Auto) (1.78-5.38) K/mm3 Lymph # (Auto) (1.32-3.57) K/mm3 [place] # (Auto) (0.30-0.82) K/mm3 Eos # (Auto) (0.04-0.54) K/mm3 Baso # (Auto) (0.01-0.08) K/mm3 Manual Slide Review PT (9.7-12.0) SECONDS INR APTT (22-31) SECONDS D-Dimer, Quantitative (0.19-0.50) mg/L Sodium (136-145) mEq/L Potassium (3.5-5.1) mEq/L Chloride (98-107) mEq/L Carbon Dioxide (21-32) mEq/L Anion Gap (5-15) BUN (7-18) mg/dL Creatinine (0.7-1.3) mg/dL Est Cr Clr Drug Dosing mL/min Estimated GFR (MDRD) (>60) mL/min BUN/Creatinine Ratio (14-18) Glucose (83-115) mg/dL Calcium (8.5-10.1) mg/dL Magnesium 1.8 (1.8-2.4) mg/dl Total Bilirubin (0.2-1.0) mg/dL AST (15-37) U/L ALT (16-63) U/L Alkaline Phosphatase (46-116) U/L CK-MB (CK-2) (0-3.6) ng/ml Troponin I < 0.017 (0.00-0.056) ng/mL C-Reactive Protein 15.3 H* (<1.0) mg/dL NT-Pro-B Natriuret Pep 752 H (0-450) pg/mL Total Protein (6.4-8.2) g/dl Albumin (3.4-5.0) g/dl Globulin gm/dL Albumin/Globulin Ratio (1-2) Lipase (73-393) U/L Meds: Medications Generic Name Dose Route Start Last Admin Trade Name Freq PRN Reason Stop Dose Admin Sodium Chloride 100 mls @ 60 mls/hr 01/11/19 19:00 01/11/19 18:50 Normal Saline IV 60 mls/hr ASDIRECTED AUNDREA Administration Sodium Chloride 1,000 mls @ 100 mls/hr 01/11/19 22:30 01/11/19 22:26 Normal Saline IV 100 mls/hr ASDIRECTED AUNDREA Administration Sodium Chloride 10 ml 01/11/19 17:13 01/11/19 17:49 Saline Flush FLUSH 10 ml ASDIRECTED PRN Administration Keep Vein Open Discontinued Medications Generic Name Dose Route Start Last Admin Trade Name Freq PRN Reason Stop Dose Admin Albuterol 2.5 mg 01/11/19 21:14 01/11/19 21:21 Proventil Neb Soln NEB 01/11/19 21:15 2.5 mg ONETIME ONE Administration Aspirin 324 mg 01/11/19 17:12 01/11/19 21:22 Aspirin PO 01/11/19 17:13 Not Given ONETIME ONE Sodium Chloride 500 mls @ 500 mls/hr 01/11/19 18:04 01/11/19 18:35 Normal Saline IV 01/11/19 19:03 500 mls/hr ONETIME ONE Administration Ceftriaxone Sodium 2 gm/ 100 mls @ 200 mls/hr 01/11/19 22:30 01/11/19 22:59 Sodium Chloride IV 01/11/19 22:59 200 mls/hr NOW STA Administration Iopamidol 100 ml 01/11/19 18:48 01/11/19 18:50 Isovue-370 (76%) IVPUSH 01/11/19 18:49 100 ml ONETIME ONE Administration Sodium Chloride 10 ml 01/11/19 18:48 01/11/19 20:05 Saline Flush FLUSH 01/11/19 18:49 10 ml ONETIME ONE Administration - Radiology Interpretation Free Text/Narrative:: Chest: Portable view of the chest was obtained. Comparison: Prior chest x-ray of 07/12/18. Heart size is slightly accentuated portable technique. Tortuous thoracic aorta is seen. Sternotomy wires are present. Lungs are clear with no acute parenchymal change. Bony structures are grossly intact. Impression: 1. Nothing acute is appreciated on portable chest x-ray. Head CT Technique: Multiple axial sections through the brain were obtained. Intravenous contrast was not utilized. Comparison: Previous head CT study of 07/12/18. Findings: Ventricles along with basal cisterns and sulci over the convexities are mildly prominent. Minimal diminished density is noted within the periventricular white matter and subcortical white matter which is felt compatible with small vessel ischemic demyelination change. 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 No other abnormal parenchymal densities are seen. No evidence of intracranial hemorrhage. No midline shift or mass effect is seen. Rounded soft tissue density is seen within the inferior left frontal sinus having the appearance of a small retention cyst. Other visualized sinuses are clear. No acute calvarial abnormality is seen. Impression: 1. Stable senescent change as described above. 2. Nothing acute is appreciated on noncontrast head CT study. 3. Sinus finding which is felt to be incidental. CT chest Technique: Multiple axial sections through the chest were obtained. Intravenous contrast was utilized. Study performed as a pulmonary angiogram protocol. Comparison: Previous chest CT study of 07/24/14. Findings: Pulmonary arteries are not optimally opacified. No filling defects are seen within the main or segmental branches. Smaller subsegmental pulmonary emboli could be missed. Mild ectasia of the aorta is seen. No aneurysm is identified. Cyst is noted within the left kidney. Small low density finding is noted within the body of the pancreas which appears stable. Small cyst is noted within the left lobe of the liver which is stable. Small hiatal hernia is seen. No pericardial thickening is seen. Coronary artery calcification is noted. Mediastinum and hilar region show no adenopathy or mass. No axillary adenopathy is seen. Basilar lung markings are mildly increased which are felt to be chronic as well as mild dependent atelectasis also seen posteriorly within both lung bases. No acute parenchymal change is appreciated. Bone window settings were reviewed which shows previous sternotomy. No acute osseous abnormality is identified. Impression: 1. Less than optimal opacification of the pulmonary arteries. No findings of pulmonary embolism within the main or segmental branches. Smaller subsegmental pulmonary emboli could be missed. 2. Cysts within the kidney, liver and pancreas as noted above, which are stable from previous chest CT. 3. Other findings as noted above believed to be incidental. 4. No acute parenchymal change is seen within either lung. - Re-Assessments/Exams Free Text/Narrative Re-Assessment/Exam: 01/11/19 23:10 Previous hospitalization reviewed. EF 55%. I reviewed the labs, EKG and imaging with the patient's family. Antibiotics started for presumed UTI based on slightly elevated white blood cell count CRP. CT PE does not show a PE. Troponin and repeat troponin both well within normal limits. EKG does not show any significant changes. Discussed disposition, we attempted to wean him off oxygen given an albuterol treatment but his oxygen sats dropped into the upper 80s without oxygen. A do not 50 be okay to go home and recommending at least observation admission which they are agreeable to do Discussed with Dr. Doherty who agrees to the admission. Will be admitted observation. At this time he is doing much better. He is now responding appropriately. he has received little over a liter of fluid and has been on oxygen during most of his stay.. Departure - Departure Time of Disposition: 23:15 Disposition: Refer to Observation Clinical Impression: Confusion, Hypoxia Referrals: Antonio Barillas MD [Primary Care Provider] - Forms: ED Department Discharge Additional Instructions: Patient admitted observation for hypoxia and confusion. - My Orders Last 24 Hours: My Active Orders 01/11/19 17:12 Cardiac Monitoring [RC] . DIRECTED EKG Documentation Completion [RC] ASDIRECTED Chest 1V Frontal [CR] Stat EKG 12 Lead [EK] Stat 01/11/19 17:13 Peripheral IV Care [RC] . DIRECTED Sodium Chloride 0.9% [Saline Flush] 10 ml FLUSH ASDIRECTED PRN Peripheral IV Insertion Adult [OM.PC] Routine 01/11/19 17:14 Oxygen Therapy [RC] ASDIRECTED 01/11/19 19:00 Sodium Chloride 0.9% [Normal Saline] 100 ml IV ASDIRECTED 01/11/19 21:14 RT Aerosol Therapy [RC] ASDIRECTED 01/11/19 22:25 CULTURE URINE [RM] Stat UA W/MICROSCOPIC [URIN] Stat 01/11/19 22:30 Sodium Chloride 0.9% [Normal Saline] 1,000 ml IV ASDIRECTED - Assessment/Plan Last 24 Hours: My Active Orders 01/11/19 17:12 Cardiac Monitoring [RC] . DIRECTED EKG Documentation Completion [RC] ASDIRECTED Chest 1V Frontal [CR] Stat EKG 12 Lead [EK] Stat 01/11/19 17:13 Peripheral IV Care [RC] . DIRECTED Sodium Chloride 0.9% [Saline Flush] 10 ml FLUSH ASDIRECTED PRN Peripheral IV Insertion Adult [OM.PC] Routine 01/11/19 17:14 Oxygen Therapy [RC] ASDIRECTED 01/11/19 19:00 Sodium Chloride 0.9% [Normal Saline] 100 ml IV ASDIRECTED 01/11/19 21:14 RT Aerosol Therapy [RC] ASDIRECTED 01/11/19 22:25 CULTURE URINE [RM] Stat UA W/MICROSCOPIC [URIN] Stat 01/11/19 22:30 Sodium Chloride 0.9% [Normal Saline] 1,000 ml IV ASDIRECTED
[2019-01-11] MEDS ORDERED: Sodium Chloride 0.9% 500 ML IV ONE (18:04)
[2019-01-11] MEDS ORDERED: Iopamidol 755 Mg/ML 100 ML Bottle IVPUSH ONE (18:48)
[2019-01-11] MEDS ORDERED: Sodium Chloride 0.9% 10 ML Syringe FLUSH ONE (18:48)
[2019-01-11] MEDS ORDERED: Sodium Chloride 0.9% 100 ML IV SCH (19:00)
--- NOTE | 2019-01-11 19:37 | CT ---
Head CT Technique: Multiple axial sections through the brain were obtained. Intravenous contrast was not utilized. Comparison: Previous head CT study of 07/12/18. Findings: Ventricles along with basal cisterns and sulci over the convexities are mildly prominent. Minimal diminished density is noted within the periventricular white matter and subcortical white matter which is felt compatible with small vessel ischemic demyelination change. 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 No other abnormal parenchymal densities are seen. No evidence of intracranial hemorrhage. No midline shift or mass effect is seen. Rounded soft tissue density is seen within the inferior left frontal sinus having the appearance of a small retention cyst. Other visualized sinuses are clear. No acute calvarial abnormality is seen. Impression: 1. Stable senescent change as described above. 2. Nothing acute is appreciated on noncontrast head CT study. 3. Sinus finding which is felt to be incidental. Diagnostic code #2
--- NOTE | 2019-01-11 20:04 | CT ---
CT chest Technique: Multiple axial sections through the chest were obtained. Intravenous contrast was utilized. Study performed as a pulmonary angiogram protocol. Comparison: Previous chest CT study of 07/24/14. Findings: Pulmonary arteries are not optimally opacified. No filling defects are seen within the main or segmental branches. Smaller subsegmental pulmonary emboli could be missed. Mild ectasia of the aorta is seen. No aneurysm is identified. Cyst is noted within the left kidney. Small low density finding is noted within the body of the pancreas which appears stable. Small cyst is noted within the left lobe of the liver which is stable. Small hiatal hernia is seen. No pericardial thickening is seen. Coronary artery calcification is noted. Mediastinum and hilar region show no adenopathy or mass. No axillary adenopathy is seen. Basilar lung markings are mildly increased which are felt to be chronic as well as mild dependent atelectasis also seen posteriorly within both lung bases. No acute parenchymal change is appreciated. Bone window settings were reviewed which shows previous sternotomy. No acute osseous abnormality is identified. Impression: 1. Less than optimal opacification of the pulmonary arteries. No findings of pulmonary embolism within the main or segmental branches. Smaller subsegmental pulmonary emboli could be missed. 2. Cysts within the kidney, liver and pancreas as noted above, which are stable from previous chest CT. 3. Other findings as noted above believed to be incidental. 4. No acute parenchymal change is seen within either lung. Diagnostic code #2
[2019-01-11] MEDS ORDERED: Albuterol 0.083% 2.5 MG/3 ML Neb Soln NEB ONE (21:14)
[2019-01-11] MEDS: Sodium Chloride 0.9% 1,000 ML IV SCH (22:26)
[2019-01-11] MEDS ORDERED: cefTRIAXone 2 GM in Sodium Chloride 0.9% 100 ML IV STA (22:30)
--- NOTE | 2019-01-12 06:40 | CR ---
Chest: Portable view of the chest was obtained. Comparison: Prior chest x-ray of 07/12/18. Heart size is slightly accentuated portable technique. Tortuous thoracic aorta is seen. Sternotomy wires are present. Lungs are clear with no acute parenchymal change. Bony structures are grossly intact. Impression: 1. Nothing acute is appreciated on portable chest x-ray. Diagnostic code #2
--- NOTE | 2019-01-12 08:11 | PCM.HP.2 ---
H&P History of Present Illness - General Date of Service: 01/12/19 Admit Problem/Dx: Admission Diagnosis/Problem Admission Diagnosis/Problem Hypoxia Source of Information: Patient, Family, Old Records, Provider, RN Notes Reviewed , Significant Other History Limitations: Reports: Altered Mental Status, Physical Impairment, Other (Impaired hearing on left ear) - History of Present Illness Initial Comments - Free Text/Narative: This is an 83 year old elderly white male with past medical hx/o Hx/o Cataract, BPH, Renal Insufficiency, Recurrent U, Hx/o Pyelonephritis, Anemia, Alzheimer's Disease and 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 He was however chest pain free on presentation to ED. He carries no hx/o lung disease and no active heart disease. 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 He has baseline dementia as well as impaired hearing. Patient lives with his who from my understanding recently had a horse accident this past weekend. He was found with O2 sat as low as 88% in ED on RA. All his imaging studies revealed no acute abnormal findings. His initial work up in ED showed a CBC remarkable for WBC of 11.16, RBC, Hgb of 11.4, Hct of 35.2, RDW of 47.8, Neutrophils of 71.4%, Lymphocytes of 9.6%, Monocytes of 18.3, and Eosinophils of 0.4%. His D-dimer was elevated at 2.08. His Chemistry was significant for AG of 16.4, AST of 53, CRP of 15.3, and ProBNP of 752. His UA was negative. Patient received 2 grams of IV Rocephin last night before he was sent to the floor for further management. Left Chest Pain Score (Numeric/FACES): 5 - Related Data Allergies/Adverse Reactions: Allergies Allergy/AdvReac Type Severity Reaction Status Date / Time No Known Allergies Allergy Verified 01/12/19 00:48 Home Medications: Home Meds Aspirin [Halfprin] 81 mg PO DAILY 10/22/14 [History] Cyanocobalamin (Vitamin B12) [Vitamin B12] 1,500 mcg PO DAILY 10/22/14 [History] Donepezil HCl [Aricept] 10 mg PO BEDTIME 10/22/14 [History] Finasteride [Proscar] 5 mg PO DAILY 10/22/14 [History] Escitalopram [Lexapro] 20 mg PO DAILY 07/12/18 [History] Symplex M 1 tab PO DAILY 01/11/19 [History] Back Pain Relief 1 tab SL BID 01/12/19 [History] Cardio-Plus 2 tab PO TIDMEALS 01/12/19 [History] Palmettoplex 3 cap PO DAILY 01/12/19 [History] Tuna [place]-3 Oil 2 tab PO BID 01/12/19 [History] Past Medical History HEENT History: Reports: Cataract, Hard of Hearing, Impaired Vision, Other (See Below) Other HEENT History: corneal abrasion; wears glasses; has hearing aids; has top and bottom dentures Respiratory History: Reports: None Gastrointestinal History: Reports: None Genitourinary History: Reports: BPH, Chronic Renal Insuffiency, Pyelonephritis, UTI, Recurrent Musculoskeletal History: Reports: Back Pain, Chronic Neurological History: Reports: Alzheimers Disease Other Neuro History: on aricept Psychiatric History: Reports: Dementia, Depression Endocrine/Metabolic History: Reports: None Hematologic History: Reports: Anemia Immunologic History: Reports: None Oncologic (Cancer) History: Reports: Other (See Below) Other Oncologic History: skin Dermatologic History: Reports: Other (See Below) Other Dermatologic 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 Exam - Exam Exam: See Below - Vital Signs Vital Signs: Last Vital Signs Temp 37.1 C 01/12/19 00:32 Pulse 84 01/12/19 00:32 Resp 20 01/12/19 00:32 BP 154/77 H 01/12/19 03:08 Pulse Ox 97 01/12/19 00:32 Weight: 82.191 kg - Exam General: Alert, Cooperative, Mild Distress HEENT: Conjunctiva Clear, EACs Clear, EOMI, Hearing Intact, Mucosa Moist & [place] , Nares Patent, Normal Nasal Septum, Posterior Pharynx Clear, Pupils Equal, Pupils Reactive, Other (mouth tremor and impaired hearing on left ear) Neck: Supple, Trachea Midline Lungs: Clear to Auscultation, Normal Respiratory Effort Cardiovascular: Regular Rate, Regular Rhythm, Other (midline sternal scar) GI/Abdominal Exam: Normal Bowel Sounds, Soft, Non-Tender, No Organomegaly, No Distention, No Abnormal Bruit (Male) Exam: Deferred Rectal (Males) Exam: Deferred Back Exam: Normal Inspection, Decreased Range of Motion Extremities: Normal Inspection, Normal Range of Motion, Non-Tender, No Pedal Edema, Normal Capillary Refill Peripheral Pulses: 2+: Dorsalis Pedis (L), Dorsalis Pedis (R) Skin: Warm, Dry, Intact Skin Alteration Location (Drawings Not To Scale): 1 - multiple small scabs 2 - multiple small scabs 3 - midline sternal scar Neuro Extensive - Mental Status: Normal Cognition, Memory Intact, Nl Response to Commands, Other (baseline dementia) Neuro Extensive - Motor, Sensory, Reflexes: CN II-XII Intact (limited but grossly intact), Abnormal Gait Psychiatric: Alert, Normal Affect, Normal Mood - Patient Data Lab Results Last 24 hrs: Laboratory Results - last 24 hr 01/11/19 01/11/19 01/11/19 Range/Units 17:10 17:10 17:10 WBC 11.16 H (4.23-9.07) K/mm3 RBC 3.82 L (4.63-6.08) M/mm3 Hgb 11.4 L (13.7-17.5) gm/L Hct 35.2 L (40.1-51.0) % MCV 92.1 (79.0-92.2) fl MCH 29.8 (25.7-32.2) pg MCHC 32.4 (32.2-35.5) g/dl RDW Std Deviation 47.8 H (35.1-43.9) fL Plt Count 80 L (163-337) K/mm3 MPV 11.2 (9.4-12.3) fl Neut % (Auto) 71.4 H (34.0-67.9) % Lymph % (Auto) 9.6 L (21.8-53.1) % [place] % (Auto) 18.3 H (5.3-12.2) % Eos % (Auto) 0.4 L (0.8-7.0) Baso % (Auto) 0.1 (0.1-1.2) % Neut # (Auto) 7.98 H (1.78-5.38) K/mm3 Lymph # (Auto) 1.07 L (1.32-3.57) K/mm3 [place] # (Auto) 2.04 H (0.30-0.82) K/mm3 Eos # (Auto) 0.04 (0.04-0.54) K/mm3 Baso # (Auto) 0.01 (0.01-0.08) K/mm3 Manual Slide Review Abnormal smear PT 11.5 (9.7-12.0) SECONDS INR 1.06 APTT 27 (22-31) SECONDS D-Dimer, Quantitative 2.08 H (0.19-0.50) mg/L Sodium 138 (136-145) mEq/L Potassium 4.4 (3.5-5.1) mEq/L Chloride 100 (98-107) mEq/L Carbon Dioxide 26 (21-32) mEq/L Anion Gap 16.4 H (5-15) BUN 15 (7-18) mg/dL Creatinine 0.9 (0.7-1.3) mg/dL Est Cr Clr Drug Dosing 69.02 mL/min Estimated GFR (MDRD) > 60 (>60) mL/min BUN/Creatinine Ratio 16.7 (14-18) Glucose 111 (83-115) mg/dL Calcium 9.5 (8.5-10.1) mg/dL Magnesium (1.8-2.4) mg/dl Total Bilirubin 0.7 (0.2-1.0) mg/dL AST 53 H (15-37) U/L ALT 56 (16-63) U/L Alkaline Phosphatase 109 (46-116) U/L CK-MB (CK-2) < 0.5 (0-3.6) ng/ml Troponin I < 0.017 (0.00-0.056) ng/mL C-Reactive Protein (<1.0) mg/dL NT-Pro-B Natriuret Pep (0-450) pg/mL Total Protein 7.0 (6.4-8.2) g/dl Albumin 3.4 (3.4-5.0) g/dl Globulin 3.6 gm/dL Albumin/Globulin Ratio 0.9 L (1-2) Lipase 122 (73-393) U/L Urine Color (Yellow) Urine Appearance (Clear) Urine pH (5.0-8.0) Ur Specific [place] (1.005-1.030) Urine Protein (Negative) Urine Glucose (UA) (Negative) Urine Ketones (Negative) Urine Occult Blood (Negative) Urine Nitrite (Negative) Urine Bilirubin (Negative) Urine Urobilinogen (0.2-1.0) Ur Leukocyte Esterase (Negative) Urine RBC (0-5) /hpf Urine WBC (0-5) /hpf Ur Squamous Epith Cells (0-5) /hpf Urine Bacteria (FEW) /hpf Hyaline Casts (0-5) /lpf Urine Mucus (FEW) /hpf 01/11/19 01/11/19 01/11/19 Range/Units 21:04 21:04 22:25 WBC (4.23-9.07) K/mm3 RBC (4.63-6.08) M/mm3 Hgb (13.7-17.5) gm/L Hct (40.1-51.0) % MCV (79.0-92.2) fl MCH (25.7-32.2) pg MCHC (32.2-35.5) g/dl RDW Std Deviation (35.1-43.9) fL Plt Count (163-337) K/mm3 MPV (9.4-12.3) fl Neut % (Auto) (34.0-67.9) % Lymph % (Auto) (21.8-53.1) % [place] % (Auto) (5.3-12.2) % Eos % (Auto) (0.8-7.0) Baso % (Auto) (0.1-1.2) % Neut # (Auto) (1.78-5.38) K/mm3 Lymph # (Auto) (1.32-3.57) K/mm3 [place] # (Auto) (0.30-0.82) K/mm3 Eos # (Auto) (0.04-0.54) K/mm3 Baso # (Auto) (0.01-0.08) K/mm3 Manual Slide Review PT (9.7-12.0) SECONDS INR APTT (22-31) SECONDS D-Dimer, Quantitative (0.19-0.50) mg/L Sodium (136-145) mEq/L Potassium (3.5-5.1) mEq/L Chloride (98-107) mEq/L Carbon Dioxide (21-32) mEq/L Anion Gap (5-15) BUN (7-18) mg/dL Creatinine (0.7-1.3) mg/dL Est Cr Clr Drug Dosing mL/min Estimated GFR (MDRD) (>60) mL/min BUN/Creatinine Ratio (14-18) Glucose (83-115) mg/dL Calcium (8.5-10.1) mg/dL Magnesium 1.8 (1.8-2.4) mg/dl Total Bilirubin (0.2-1.0) mg/dL AST (15-37) U/L ALT (16-63) U/L Alkaline Phosphatase (46-116) U/L CK-MB (CK-2) (0-3.6) ng/ml Troponin I < 0.017 (0.00-0.056) ng/mL C-Reactive Protein 15.3 H* (<1.0) mg/dL NT-Pro-B Natriuret Pep 752 H (0-450) pg/mL Total Protein (6.4-8.2) g/dl Albumin (3.4-5.0) g/dl Globulin gm/dL Albumin/Globulin Ratio (1-2) Lipase (73-393) U/L Urine Color Yellow (Yellow) Urine Appearance Slt cloudy H (Clear) Urine pH 6.0 (5.0-8.0) Ur Specific [place] 1.015 (1.005-1.030) Urine Protein 2+ H (Negative) Urine Glucose (UA) Negative (Negative) Urine Ketones Negative (Negative) Urine Occult Blood Trace-lysed H (Negative) Urine Nitrite Negative (Negative) Urine Bilirubin Negative (Negative) Urine Urobilinogen 0.2 (0.2-1.0) Ur Leukocyte Esterase Negative (Negative) Urine RBC 0-5 (0-5) /hpf Urine WBC Not seen (0-5) /hpf Ur Squamous Epith Cells 0-5 (0-5) /hpf Urine Bacteria Rare (FEW) /hpf Hyaline Casts 0-5 (0-5) /lpf Urine Mucus Few (FEW) /hpf Result Diagrams: 01/13/19 05:37 01/13/19 05:37 EKG INTERPRETATION EKG Date: 01/11/19 Time: 17:05 Rhythm: NSR Rate (Beats/Min): 93 [place]: Normal P-Wave: Present QRS: LBBB (Incomplete) Comparison: Change From Previous EKG EKG Interpretation Comments: Had RB3 and LFB on previous EKGs Problem List Initiated/Reviewed/Updated: Yes Orders Last 24hrs: Active Orders 24 hr Category Date Time Status Patient Status [ADT] Routine ADT 01/11/19 23:37 Active Activity as Tolerated [RC] .Routine Care 01/12/19 01:46 Active Cardiac Monitoring [RC] . DIRECTED Care 01/11/19 17:12 Active Oxygen Therapy [RC] ASDIRECTED Care 01/11/19 17:14 Active RT Aerosol Therapy [RC] ASDIRECTED Care 01/11/19 21:14 Active Regular Diet [DIET] Diet 01/12/19 Breakfast Active CULTURE URINE [RM] Stat Lab 01/11/19 22:25 Results Sodium Chloride 0.9% [Normal Saline] 1,000 ml Med 01/11/19 22:30 Active IV ASDIRECTED Sodium Chloride 0.9% [Saline Flush] Med 01/11/19 17:13 Active 10 ml FLUSH ASDIRECTED PRN Peripheral IV Insertion Adult [OM.PC] Routine Oth 01/11/19 17:13 Ordered Code Status [Resuscitation Status] Routine Resus Stat 01/12/19 01:46 Ordered EKG 12 Lead [EK] Stat Ther 01/11/19 17:12 Ordered Medication Orders Sodium Chloride (Normal Saline) 1,000 mls @ 100 mls/hr IV ASDIRECTED AUNDREA Last Admin: 01/11/19 22:26 Dose: 100 mls/hr Sodium Chloride (Saline Flush) 10 ml FLUSH ASDIRECTED PRN PRN Reason: Keep Vein Open Last Admin: 01/11/19 17:49 Dose: 10 ml Assessment/Plan Comment:: Assessment: Acute: AMS/Acute Confusion - Has baseline Dementia - Suspect 2/2 inadequate sleep and or stress ( recently had a horse accident and scheduled for surgery soon) - Head CT scan report read as stable senescent change. 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 No acute parenchymal change is see within either lungs - No complaints of SOB or Cough when asked this morning Chest Pain r/o ACS - Associated with shortness of breath - Troponin x 2 and CKMB x1 - have been negative - EKG shows Sinus Rhythm with Incomplete LB3 (had RB3 and LAFB on previous EKGs) - Completely Asymptomatic this morning Generalized Weakness - Too weak and had difficulty getting up and around - Vit D level - PT/OT to assess and treat Additional Chest CTA Abnormal Findings - Cysts within kidney, liver and pancreas Chronic: Hx/o Cataract, BPH, Renal Insufficiency, Recurrent U, Hx/o Pyelonephritis, Anemia, Alzheimer's Disease and 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 Informed her about patient's test results , diagnoses, treatment and possible discharge care plan. - Mortality Measure Prognosis:: Good
[2019-01-12] MEDS: Sodium Chloride 0.9% 1,000 ML IV SCH ×2 (08:32→18:28)
[2019-01-12] MEDS ORDERED: Ondansetron 4 MG/2 ML SDV IV PRN (09:47)
[2019-01-12] MEDS ORDERED: Promethazine 6.25 MG in Sodium Chloride 0.9% 50 ML IV PRN (09:47)
[2019-01-12] MEDS ORDERED: Docusate Sodium 100 MG Cap PO PRN (09:47)
[2019-01-12] MEDS ORDERED: Temazepam 7.5 MG Cap PO PRN (09:47)
[2019-01-12] MEDS ORDERED: Ketorolac 30 MG/ML SDV IV PRN (09:47)
[2019-01-12] MEDS ORDERED: Bisacodyl 5 MG Tab PO PRN (09:47)
[2019-01-12] MEDS: Famotidine 20 MG Tab PO SCH (20:15)
[2019-01-12] MEDS: DONEPEZIL 10 MG PO SCH (20:15)
[2019-01-12] MEDS: Acetaminophen 325 MG Tab PO PRN (20:15)
--- NOTE | 2019-01-12 20:55 | PCM.SN ---
- Free Text/Narrative Note: At this point patient meets criteria for SIRS: most recent temp of 38.2C, HR > 90, and RR of > 20 w/o clear source of infection. Repeat UA, Blood Culture x2 and IV Zosyn Q6H for pharmacy to dose.
[2019-01-12] MEDS ORDERED: Piperacillin/Tazobactam 4.5 GM in Sodium Chloride 0.9% 100 ML IV SCH (21:00)
[2019-01-13] MEDS: Sodium Chloride 0.9% 1,000 ML IV SCH ×2 (04:19→14:18)
[2019-01-13] MEDS: Piperacillin/Tazobactam 4.5 GM in Sodium Chloride 0.9% 100 ML IV SCH ×3 (04:19→21:28)
[2019-01-13] MEDS ORDERED: Vancomycin 1 GM, Vancomycin 500 MG in Sodium Chloride 0.9% 500 ML IV ONE (08:00)
[2019-01-13] MEDS: Aspirin 81 MG Tab.EC PO SCH (08:39)
[2019-01-13] MEDS: CYANOCOBALAMIN 1500 MCG PO SCH (08:41)
[2019-01-13] MEDS: FINASTERIDE 5 MG PO SCH (08:44)
[2019-01-13] MEDS: Famotidine 20 MG Tab PO SCH ×2 (08:54→21:28)
[2019-01-13] MEDS: Cholecalciferol (Vitamin D3) 5,000 UNIT Tab PO SCH (08:54)
[2019-01-13] MEDS ORDERED: [UNRECOGNIZED DRUG - OTHER] PO SCH (09:00)
--- NOTE | 2019-01-13 11:13 | CR ---
Chest: Portable view of the chest was obtained. Comparison: Prior chest x-ray of 01/11/19. Prior chest CT study of 01/11/19. Heart size is within normal limits for portable technique. Tortuous thoracic aorta is seen. Mild right basilar atelectasis is seen. Lungs otherwise are clear. Bony structures are grossly intact. Previous sternotomy is noted. Impression: 1. Mild right basilar atelectasis. Nothing acute is otherwise seen on portable chest x-ray. Diagnostic code #2
--- NOTE | 2019-01-13 15:33 | PCM.PN ---
- General Info Date of Service: 01/13/19 Admission Dx/Problem (Free Text): Admission Diagnosis/Problem Admission Diagnosis/Problem Hypoxia Altered mental status and weakness Fever of unknown origin Possible prostatitis - Review of Systems General: Reports: Fever, Weakness, Fatigue HEENT: Reports: No Symptoms Pulmonary: Reports: Shortness of Breath, Wheezing Cardiovascular: Reports: No Symptoms Gastrointestinal: Reports: No Symptoms Genitourinary: Reports: Frequency, Incontinence Musculoskeletal: Reports: No Symptoms Skin: Reports: No Symptoms Neurological: Reports: Confusion, Weakness Psychiatric: Reports: Confusion - Patient Data Vitals - Most Recent: Last Vital Signs Temp 100.6 F 01/13/19 12:15 Pulse 95 01/13/19 12:15 Resp 24 H 01/13/19 12:15 BP 155/86 H 01/13/19 12:15 Pulse Ox 96 01/13/19 13:14 Weight - Most Recent: 181 lb 3.2 oz I&O - Last 24 Hours: Intake & Output 01/12/19 01/13/19 01/13/19 22:59 06:59 14:59 Intake Total 1785 2050 360 Output Total 700 900 Balance 1085 1150 360 Lab Results Last 24 Hours: Laboratory Results - last 24 hr 01/13/19 01/13/19 01/13/19 Range/Units 05:37 05:37 07:50 WBC 15.19 H (4.23-9.07) K/mm3 RBC 3.55 L (4.63-6.08) M/mm3 Hgb 10.4 L (13.7-17.5) gm/L Hct 33.1 L (40.1-51.0) % MCV 93.2 H (79.0-92.2) fl MCH 29.3 (25.7-32.2) pg MCHC 31.4 L (32.2-35.5) g/dl RDW Std Deviation 47.2 H (35.1-43.9) fL Plt Count 89 L (163-337) K/mm3 MPV 10.6 (9.4-12.3) fl Neut % (Auto) 74.6 H (34.0-67.9) % Lymph % (Auto) 7.6 L (21.8-53.1) % [place] % (Auto) 17.0 H (5.3-12.2) % Eos % (Auto) 0.4 L (0.8-7.0) Baso % (Auto) 0.1 (0.1-1.2) % Neut # (Auto) 11.33 H (1.78-5.38) K/mm3 Lymph # (Auto) 1.16 L (1.32-3.57) K/mm3 [place] # (Auto) 2.58 H (0.30-0.82) K/mm3 Eos # (Auto) 0.06 (0.04-0.54) K/mm3 Baso # (Auto) 0.02 (0.01-0.08) K/mm3 Manual Slide Review Abnormal smear Sodium 141 (136-145) mEq/L Potassium 4.4 (3.5-5.1) mEq/L Chloride 106 (98-107) mEq/L Carbon Dioxide 27 (21-32) mEq/L Anion Gap 12.4 (5-15) BUN 10 (7-18) mg/dL Creatinine 0.8 (0.7-1.3) mg/dL Est Cr Clr Drug Dosing 68.88 mL/min Estimated GFR (MDRD) > 60 (>60) mL/min BUN/Creatinine Ratio 12.5 L (14-18) Glucose 113 (83-115) mg/dL Calcium 8.0 L D (8.5-10.1) mg/dL Magnesium 1.9 (1.8-2.4) mg/dl C-Reactive Protein 23.2 H* (<1.0) mg/dL Urine Color Yellow (Yellow) Urine Appearance Clear (Clear) Urine pH 5.5 (5.0-8.0) Ur Specific [place] > or = 1.030 (1.005-1.030) Urine Protein 2+ H (Negative) Urine Glucose (UA) Negative (Negative) Urine Ketones Negative (Negative) Urine Occult Blood 1+ H (Negative) Urine Nitrite Negative (Negative) Urine Bilirubin Negative (Negative) Urine Urobilinogen 0.2 (0.2-1.0) Ur Leukocyte Esterase Negative (Negative) Urine RBC 0-5 (0-5) /hpf Urine WBC 0-5 (0-5) /hpf Ur Squamous Epith Cells 0-5 (0-5) /hpf Amorphous Sediment Moderate H (NOT SEEN) /hpf Urine Bacteria Few (FEW) /hpf Urine Mucus Not seen (FEW) /hpf [place] Results Last 24 Hours: Microbiology 01/12/19 21:04 Anaerobic Blood Culture - Final Blood - Venous - Lab Draw Med Orders - Current: Current Medications Acetaminophen (Tylenol) 650 mg PO Q4H PRN PRN Reason: Pain (Mild 1-3)/fever Last Admin: 01/12/19 20:15 Dose: 650 mg Albuterol (Proventil Neb Soln) 2.5 mg NEB Q2H PRN PRN Reason: Shortness Of Breath/wheezing Aspirin (Halfprin) 81 mg PO DAILY [facility] Last Admin: 01/13/19 08:39 Dose: 81 mg Bisacodyl (Dulcolax) 5 mg PO DAILY PRN PRN Reason: Constipation Cholecalciferol (Vitamin D3) 5,000 unit PO DAILY [facility] Last Admin: 01/13/19 08:54 Dose: 5,000 unit Docusate Sodium (Colace) 100 mg PO BID PRN PRN Reason: Constipation Famotidine (Pepcid) 20 mg PO BID [facility] Last Admin: 01/13/19 08:54 Dose: 20 mg Sodium Chloride (Normal Saline) 1,000 mls @ 100 mls/hr IV ASDIRECTED [facility] Last Admin: 01/13/19 04:19 Dose: 100 mls/hr Promethazine HCl 6.25 mg/ (Sodium Chloride) 50.25 mls @ 100 mls/hr IV Q6H PRN PRN Reason: Nausea/Vomiting Piperacillin Sod/Tazobactam (Sod 4.5 gm/ Sodium Chloride) 100 mls @ 25 mls/hr IV Q8H [facility] Last Admin: 01/13/19 12:19 Dose: 25 mls/hr Vancomycin HCl 1 gm/Vancomycin HCl 250 mg/ Sodium Chloride 250 mls @ 166.667 mls/hr IV Q12H [facility] Ketorolac Tromethamine (Toradol) 30 mg IV Q6H PRN PRN Reason: Pain (moderate 4-6) Ondansetron HCl (Zofran) 4 mg IV Q6H PRN PRN Reason: Nausea/Vomiting Cyanocobalamin ( Vitamin B12) [ Vitamin B12] 1,500 Mcg 0 each PO DAILY [facility] Last Admin: 01/13/19 08:41 Dose: 1 each Donepezil 10 Mg Tab. 0 each PO BEDTIME [facility] Last Admin: 01/12/19 20:15 Dose: 1 each Finasteride 5 Mg Tab (.) 0 each PO DAILY [facility] Last Admin: 01/13/19 08:44 Dose: 1 each Escitalopram 20 Mg 0 each PO BEDTIME [facility] Palmettoplex 0 each PO DAILY [facility] Palmettoplex 0 each PO BEDTIME [facility] Senna/Docusate Sodium (Senna Plus) 1 tab PO BID PRN PRN Reason: Constipation Sodium Chloride (Saline Flush) 10 ml FLUSH ASDIRECTED PRN PRN Reason: Keep Vein Open Last Admin: 01/11/19 17:49 Dose: 10 ml Temazepam (Restoril) 7.5 mg PO BEDTIME PRN PRN Reason: Sleep Vancomycin HCl (Pharmacy To Dose - Vancomycin) 1 dose .XX ASDIRECTED [facility] Discontinued Medications Albuterol (Proventil Neb Soln) 2.5 mg NEB ONETIME ONE Stop: 01/11/19 21:15 Last Admin: 01/11/19 21:21 Dose: 2.5 mg Aspirin (Aspirin) 324 mg PO ONETIME ONE Stop: 01/11/19 17:13 Last Admin: 01/11/19 21:22 Dose: Not Given Sodium Chloride (Normal Saline) 500 mls @ 500 mls/hr IV ONETIME ONE Stop: 01/11/19 19:03 Last Admin: 01/11/19 18:35 Dose: 500 mls/hr Sodium Chloride (Normal Saline) 100 mls @ 60 mls/hr IV ASDIRECTED [facility] Last Admin: 01/11/19 18:50 Dose: 60 mls/hr Ceftriaxone Sodium 2 gm/ (Sodium Chloride) 100 mls @ 200 mls/hr IV NOW STA Stop: 01/11/19 22:59 Last Admin: 01/11/19 22:59 Dose: 200 mls/hr Piperacillin Sod/Tazobactam (Sod 4.5 gm/ Sodium Chloride) 100 mls @ 200 mls/hr IV Q8H [facility] Stop: 01/12/19 21:29 Last Admin: 01/12/19 21:19 Dose: 200 mls/hr Vancomycin HCl 1 gm/Vancomycin HCl 500 mg/ Sodium Chloride 500 mls @ 250 mls/ hr IV ONETIME ONE Stop: 01/13/19 09:59 Last Admin: 01/13/19 08:41 Dose: 250 mls/hr Iopamidol (Isovue-370 (76%)) 100 ml IVPUSH ONETIME ONE Stop: 01/11/19 18:49 Last Admin: 01/11/19 18:50 Dose: 100 ml Escitalopram 20 Mg 0 each PO DAILY [facility] Last Admin: 01/13/19 08:43 Dose: 1 each Palmettoplex 3 Cap 0 each PO DAILY [facility] Last Admin: 01/13/19 08:45 Dose: 3 each Sodium Chloride (Saline Flush) 10 ml FLUSH ONETIME ONE Stop: 01/11/19 18:49 Last Admin: 01/11/19 20:05 Dose: 10 ml - Exam General: Alert, Oriented HEENT: Pupils Equal, Pupils Reactive, EOMI, Mucous Membr. Moist/[place] Neck: Supple Lungs: Clear to Auscultation, Normal Respiratory Effort Cardiovascular: Regular Rate, Regular Rhythm GI/Abdominal Exam: Normal Bowel Sounds, Soft, Non-Tender, No Organomegaly, No Distention, No Abnormal Bruit, No Mass, Pelvis Stable (Male) Exam: No Hernia, Other (enlarged prostate) Back Exam: Normal Inspection, Full Range of Motion Extremities: Normal Inspection, Normal Range of Motion, Non-Tender, No Pedal Edema, Normal Capillary Refill Skin: Warm, Dry, Intact Wound/Incisions: Healing Well Neurological: No New Focal Deficit Psy/Mental Status: Alert, Normal Affect, Normal Mood - Problem List & Annotations (1) Confusion SNOMED Code(s): 438995046 Code(s): R41.0 - DISORIENTATION, UNSPECIFIED Status: Acute Current Visit : Yes (2) Hypoxia SNOMED Code(s): 110190534 Code(s): R09.02 - HYPOXEMIA Status: Acute Current Visit: Yes (3) Acute renal insufficiency SNOMED Code(s): 384305241 Code(s): N28.9 - DISORDER OF KIDNEY AND URETER, UNSPECIFIED Status: Acute Current Visit: No - Problem List Review Problem List Initiated/Reviewed/Updated: Yes - Assessment Assessment:: Altered mental status and weakness Fever of unknown origin Possible prostatitis - Plan Plan:: Assessment: Acute: AMS/Acute Confusion - Has baseline Dementia - Suspect 2/2 inadequate sleep and or stress ( recently had a horse accident and scheduled for surgery soon) - Head CT scan report read as stable senescent change. 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 No acute parenchymal change is see within either lungs - No complaints of SOB or Cough when asked this morning Chest Pain r/o ACS - Associated with shortness of breath - Troponin x 2 and CKMB x1 - have been negative - EKG shows Sinus Rhythm with Incomplete LB3 (had RB3 and LAFB on previous EKGs) - Completely Asymptomatic this morning Generalized Weakness - Too weak and had difficulty getting up and around - Vit D level - PT/OT to assess and treat Additional Chest CTA Abnormal Findings - Cysts within kidney, liver and pancreas Chronic: Hx/o Cataract, BPH, Renal Insufficiency, Recurrent U, Hx/o Pyelonephritis, Anemia, Alzheimer's Disease and 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 Informed her about patient's test results , diagnoses, treatment and possible discharge care plan. 01/13/2019 Assessment: Altered mental status and weakness Fever of unknown origin Possible prostatitis Plan: Continue antibiotics for 72 hours No acute neurological changes PT/OT/Speech therapy all seeing pt Screen for possible [place] virus
--- NOTE | 2019-01-13 16:20 | PCM.SN ---
- Free Text/Narrative Note: no lactic acid needed sec to aleady on antibiotics and will not change course . he is not febrile now .
[2019-01-13] MEDS ORDERED: Sodium Chloride 0.9% 1,000 ML IV SCH (16:30)
[2019-01-13] MEDS ORDERED: LORazepam 0.5 MG Tab PO PRN (17:26)
[2019-01-13] MEDS ORDERED: Sertraline 25 MG Tab PO SCH (17:30)
[2019-01-13] MEDS: Vancomycin 1 GM, Vancomycin 250 MG in Sodium Chloride 0.9% 250 ML IV SCH (21:27)
[2019-01-13] MEDS: DONEPEZIL 10 MG PO SCH (21:29)
[2019-01-14] MEDS: Piperacillin/Tazobactam 4.5 GM in Sodium Chloride 0.9% 100 ML IV SCH ×3 (05:28→21:20)
[2019-01-14] MEDS: Cholecalciferol (Vitamin D3) 5,000 UNIT Tab PO SCH (08:27)
[2019-01-14] MEDS: Famotidine 20 MG Tab PO SCH ×2 (08:27→21:15)
[2019-01-14] MEDS: [UNRECOGNIZED DRUG - OTHER] PO SCH (08:28)
[2019-01-14] MEDS: FINASTERIDE 5 MG PO SCH (08:30)
[2019-01-14] MEDS: Aspirin 81 MG Tab.EC PO SCH (08:31)
[2019-01-14] MEDS: CYANOCOBALAMIN 1500 MCG PO SCH (08:32)
[2019-01-14] MEDS: Vancomycin 1 GM, Vancomycin 250 MG in Sodium Chloride 0.9% 250 ML IV SCH (09:37)
[2019-01-14] MEDS: Albuterol 0.083% 2.5 MG/3 ML Neb Soln NEB PRN ×2 (11:53→23:12)
--- NOTE | 2019-01-14 15:38 | PCM.PN ---
- General Info Date of Service: 01/14/19 Admission Dx/Problem (Free Text): Admission Diagnosis/Problem Admission Diagnosis/Problem Hypoxia Altered mental status and weakness Fever of unknown origin Possible prostatitis Subjective Update: 01/14/19 day 3 antibiotics for fever/confusion and possible sepsis vss/ telemetry normal iv at 50 cc hr p.e clear and not as anxious . confused and wants to get out of bed and go home . lungs clear but wheezes scattered cor apical murmur and radiates to carotids . abd benign. neuro negative oreintation blood cultures neg so far. cont antibiotics for presumed prostatitis a nd fever evaluated low platlets and anemia . boh Functional Status: Reports: Pain Controlled - Review of Systems General: Reports: Fever, Fatigue HEENT: Reports: No Symptoms Pulmonary: Reports: No Symptoms, Shortness of Breath Cardiovascular: Reports: No Symptoms Gastrointestinal: Reports: No Symptoms Genitourinary: Reports: No Symptoms Musculoskeletal: Reports: No Symptoms Skin: Reports: No Symptoms Neurological: Reports: No Symptoms Psychiatric: Reports: No Symptoms - Patient Data Vitals - Most Recent: Last Vital Signs Temp 38.2 C H 01/14/19 11:26 Pulse 85 01/14/19 11:26 Resp 24 H 01/14/19 11:26 BP 111/69 01/14/19 11:26 Pulse Ox 93 L 01/14/19 11:53 Weight - Most Recent: 84.459 kg I&O - Last 24 Hours: Intake & Output 01/14/19 01/14/19 01/14/19 06:59 14:59 22:59 Intake Total 1310 120 Output Total 950 Balance 360 120 Lab Results Last 24 Hours: Laboratory Results - last 24 hr 01/12/19 01/14/19 01/14/19 Range/Units 22:00 05:17 05:17 WBC (4.23-9.07) K/mm3 RBC (4.63-6.08) M/mm3 Hgb (13.7-17.5) gm/L Hct (40.1-51.0) % MCV (79.0-92.2) fl MCH (25.7-32.2) pg MCHC (32.2-35.5) g/dl RDW Std Deviation (35.1-43.9) fL Plt Count (163-337) K/mm3 MPV (9.4-12.3) fl Neutrophils % (Manual) (40-60) % Band Neutrophils % (0-10) % Lymphocytes % (Manual) (20-40) % Atypical Lymphs % % Monocytes % (Manual) (2-10) % Eosinophils % (Manual) (0.8-7.0) % Basophils % (Manual) (0.2-1.2) Platelet Estimate Anisocytosis RBC Morph Comment Percent Retic 0.72 (0.51-1.81) % Sodium (136-145) mEq/L Potassium (3.5-5.1) mEq/L Chloride (98-107) mEq/L Carbon Dioxide (21-32) mEq/L Anion Gap (5-15) BUN (7-18) mg/dL Creatinine (0.7-1.3) mg/dL Est Cr Clr Drug Dosing mL/min Estimated GFR (MDRD) (>60) mL/min BUN/Creatinine Ratio (14-18) Glucose (83-115) mg/dL Lactic Acid (0.4-2.0) mmol/L Calcium (8.5-10.1) mg/dL Magnesium (1.8-2.4) mg/dl Iron 20 L (65-175) ug/dL C-Reactive Protein (<1.0) mg/dL Vitamin B12 1090 H (193-986) pg/ml Adenovirus (PCR) Not detected (Not Detected) B. pertussis DNA (PCR) Not detected (Not Detected) B.parapertussis DNA PCR Not detected (Not Detected) C. pneumoniae DNA (PCR) Not detected (Not Detected) Coronavirus (PCR) Not detected (Not Detected) Human Metapneumovir PCR Not detected (Not Detected) Influenza A (RT-PCR) Not detected (Not Detected) Influenza B (RT-PCR) Not detected (Not Detected) M. pneumoniae (PCR) Not detected (Not Detected) Parainfluen 1,2,3,4 PCR Not detected (Not Detected) RSV (PCR) Not detected (Not Detected) Entero/Rhino (PCR) Not detected (Not Detected) 01/14/19 01/14/19 01/14/19 Range/Units 05:17 05:17 05:17 WBC 13.59 H (4.23-9.07) K/mm3 RBC 3.21 L (4.63-6.08) M/mm3 Hgb 9.5 L (13.7-17.5) gm/L Hct 30.0 L (40.1-51.0) % MCV 93.5 H (79.0-92.2) fl MCH 29.6 (25.7-32.2) pg MCHC 31.7 L (32.2-35.5) g/dl RDW Std Deviation 47.2 H (35.1-43.9) fL Plt Count 91 L (163-337) K/mm3 MPV 11.0 (9.4-12.3) fl Neutrophils % (Manual) 80 H (40-60) % Band Neutrophils % 0 (0-10) % Lymphocytes % (Manual) 7 L (20-40) % Atypical Lymphs % 0 % Monocytes % (Manual) 13 H (2-10) % Eosinophils % (Manual) 0 L (0.8-7.0) % Basophils % (Manual) 0 L (0.2-1.2) Platelet Estimate Decreased Anisocytosis 1+ slight RBC Morph Comment Not Reportable Percent Retic (0.51-1.81) % Sodium 140 (136-145) mEq/L Potassium 3.6 (3.5-5.1) mEq/L Chloride 107 (98-107) mEq/L Carbon Dioxide 24 (21-32) mEq/L Anion Gap 12.6 (5-15) BUN 14 (7-18) mg/dL Creatinine 1.1 (0.7-1.3) mg/dL Est Cr Clr Drug Dosing 50.09 mL/min Estimated GFR (MDRD) > 60 (>60) mL/min BUN/Creatinine Ratio 12.7 L (14-18) Glucose 102 (83-115) mg/dL Lactic Acid 0.8 (0.4-2.0) mmol/L Calcium 7.7 L (8.5-10.1) mg/dL Magnesium 1.8 (1.8-2.4) mg/dl Iron (65-175) ug/dL C-Reactive Protein 26.0 H* (<1.0) mg/dL Vitamin B12 (193-986) pg/ml Adenovirus (PCR) (Not Detected) B. pertussis DNA (PCR) (Not Detected) B.parapertussis DNA PCR (Not Detected) C. pneumoniae DNA (PCR) (Not Detected) Coronavirus (PCR) (Not Detected) Human Metapneumovir PCR (Not Detected) Influenza A (RT-PCR) (Not Detected) Influenza B (RT-PCR) (Not Detected) M. pneumoniae (PCR) (Not Detected) Parainfluen 1,2,3,4 PCR (Not Detected) RSV (PCR) (Not Detected) Entero/Rhino (PCR) (Not Detected) [place] Results Last 24 Hours: Microbiology 01/12/19 21:04 Aerobic Blood Culture - Preliminary Blood - Venous - Lab Draw NO GROWTH AFTER 1 DAY Anaerobic Blood Culture - Final 01/12/19 20:54 Aerobic Blood Culture - Preliminary Blood - Venous NO GROWTH AFTER 1 DAY Anaerobic Blood Culture - Preliminary NO GROWTH AFTER 1 DAY 01/11/19 22:25 Urine Culture - Final Urine, Voided MIXED SON SUGGESTIVE OF CONTAMINATION. Med Orders - Current: Current Medications Acetaminophen (Tylenol) 650 mg PO Q4H PRN PRN Reason: Pain (Mild 1-3)/fever Last Admin: 01/12/19 20:15 Dose: 650 mg Albuterol (Proventil Neb Soln) 2.5 mg NEB Q2H PRN PRN Reason: Shortness Of Breath/wheezing Last Admin: 01/14/19 11:53 Dose: 2.5 mg Aspirin (Halfprin) 81 mg PO DAILY [facility] Last Admin: 01/14/19 08:31 Dose: 81 mg Bisacodyl (Dulcolax) 5 mg PO DAILY PRN PRN Reason: Constipation Cholecalciferol (Vitamin D3) 5,000 unit PO DAILY [facility] Last Admin: 01/14/19 08:27 Dose: 5,000 unit Docusate Sodium (Colace) 100 mg PO BID PRN PRN Reason: Constipation Famotidine (Pepcid) 20 mg PO BID [facility] Last Admin: 01/14/19 08:27 Dose: 20 mg Promethazine HCl 6.25 mg/ (Sodium Chloride) 50.25 mls @ 100 mls/hr IV Q6H PRN PRN Reason: Nausea/Vomiting Piperacillin Sod/Tazobactam (Sod 4.5 gm/ Sodium Chloride) 100 mls @ 25 mls/hr IV Q8H [facility] Last Admin: 01/14/19 13:10 Dose: 25 mls/hr Vancomycin HCl 1 gm/Vancomycin HCl 250 mg/ Sodium Chloride 250 mls @ 166.667 mls/hr IV Q12H [facility] Last Admin: 01/14/19 09:37 Dose: 166.667 mls/hr Sodium Chloride (Normal Saline) 1,000 mls @ 50 mls/hr IV ASDIRECTED [facility] Last Admin: 01/14/19 05:30 Dose: 50 mls/hr Ketorolac Tromethamine (Toradol) 30 mg IV Q6H PRN PRN Reason: Pain (moderate 4-6) Lorazepam (Ativan) 0.5 mg PO Q8H PRN PRN Reason: Anxiety Ondansetron HCl (Zofran) 4 mg IV Q6H PRN PRN Reason: Nausea/Vomiting Donepezil 10 Mg Tab. 0 each PO BEDTIME [facility] Last Admin: 01/13/19 21:29 Dose: 1 each Finasteride 5 Mg Tab (.) 0 each PO DAILY [facility] Last Admin: 01/14/19 08:30 Dose: 1 each Escitalopram 20 Mg 0 each PO BEDTIME [facility] Palmettoplex 0 each PO DAILY [facility] Last Admin: 01/14/19 08:28 Dose: 1 each Palmettoplex 0 each PO BEDTIME [facility] Senna/Docusate Sodium (Senna Plus) 1 tab PO BID PRN PRN Reason: Constipation Sodium Chloride (Saline Flush) 10 ml FLUSH ASDIRECTED PRN PRN Reason: Keep Vein Open Last Admin: 01/11/19 17:49 Dose: 10 ml Temazepam (Restoril) 7.5 mg PO BEDTIME PRN PRN Reason: Sleep Vancomycin HCl (Pharmacy To Dose - Vancomycin) 1 dose .XX ASDIRECTED [facility] Discontinued Medications Albuterol (Proventil Neb Soln) 2.5 mg NEB ONETIME ONE Stop: 01/11/19 21:15 Last Admin: 01/11/19 21:21 Dose: 2.5 mg Aspirin (Aspirin) 324 mg PO ONETIME ONE Stop: 01/11/19 17:13 Last Admin: 01/11/19 21:22 Dose: Not Given Sodium Chloride (Normal Saline) 500 mls @ 500 mls/hr IV ONETIME ONE Stop: 01/11/19 19:03 Last Admin: 01/11/19 18:35 Dose: 500 mls/hr Sodium Chloride (Normal Saline) 100 mls @ 60 mls/hr IV ASDIRECTED [facility] Last Admin: 01/11/19 18:50 Dose: 60 mls/hr Sodium Chloride (Normal Saline) 1,000 mls @ 100 mls/hr IV ASDIRECTED [facility] Stop: 01/13/19 16:30 Last Infusion: 01/13/19 16:30 Dose: 50 mls/hr Ceftriaxone Sodium 2 gm/ (Sodium Chloride) 100 mls @ 200 mls/hr IV NOW STA Stop: 01/11/19 22:59 Last Admin: 01/11/19 22:59 Dose: 200 mls/hr Piperacillin Sod/Tazobactam (Sod 4.5 gm/ Sodium Chloride) 100 mls @ 200 mls/hr IV Q8H [facility] Stop: 01/12/19 21:29 Last Admin: 01/12/19 21:19 Dose: 200 mls/hr Vancomycin HCl 1 gm/Vancomycin HCl 500 mg/ Sodium Chloride 500 mls @ 250 mls/ hr IV ONETIME ONE Stop: 01/13/19 09:59 Last Admin: 01/13/19 08:41 Dose: 250 mls/hr Iopamidol (Isovue-370 (76%)) 100 ml IVPUSH ONETIME ONE Stop: 01/11/19 18:49 Last Admin: 01/11/19 18:50 Dose: 100 ml Cyanocobalamin ( Vitamin B12) [ Vitamin B12] 1,500 Mcg 0 each PO DAILY [facility] Last Admin: 01/14/19 08:32 Dose: Not Given Escitalopram 20 Mg 0 each PO DAILY [facility] Last Admin: 01/13/19 08:43 Dose: 1 each Palmettoplex 3 Cap 0 each PO DAILY [facility] Last Admin: 01/13/19 08:45 Dose: 3 each Sertraline HCl (Zoloft) 25 mg PO DAILY [facility] Last Admin: 01/13/19 20:23 Dose: Not Given Sodium Chloride (Saline Flush) 10 ml FLUSH ONETIME ONE Stop: 01/11/19 18:49 Last Admin: 01/11/19 20:05 Dose: 10 ml - Exam Quality Assessment: Supplemental Oxygen General: Alert, Oriented HEENT: Pupils Equal, Pupils Reactive, EOMI, Mucous Membr. Moist/[place] Neck: Supple Lungs: Clear to Auscultation, Normal Respiratory Effort Cardiovascular: Regular Rate, Regular Rhythm, Murmurs (2/6 sys. apical murmur rad to carotids ) GI/Abdominal Exam: Normal Bowel Sounds, Soft, Non-Tender, No Organomegaly, No Distention, No Abnormal Bruit, No Mass, Pelvis Stable (Male) Exam: No Hernia, Normal Inspection, Normal Prostate, Circumcised Back Exam: Normal Inspection, Full Range of Motion Extremities: Normal Inspection, Normal Range of Motion, Non-Tender, No Pedal Edema, Normal Capillary Refill Skin: Warm, Dry, Intact Wound/Incisions: Healing Well Neurological: No New Focal Deficit Psy/Mental Status: Alert, Normal Affect, Normal Mood - Problem List & Annotations (1) Confusion SNOMED Code(s): 121977767 Code(s): R41.0 - DISORIENTATION, UNSPECIFIED Status: Acute Priority: Medium Current Visit: Yes Onset Date: 01/13/19 (2) Hypoxia SNOMED Code(s): 044494132 Code(s): R09.02 - HYPOXEMIA Status: Acute Priority: Medium Current Visit: Yes Onset Date: 01/13/19 (3) Acute renal insufficiency SNOMED Code(s): 690954501 Code(s): N28.9 - DISORDER OF KIDNEY AND URETER, UNSPECIFIED Status: Acute Priority: Medium Current Visit: No Onset Date: 01/13/19 - Problem List Review Problem List Initiated/Reviewed/Updated: Yes - My Orders Last 24 Hours: My Active Orders 01/13/19 16:30 Sodium Chloride 0.9% [Normal Saline] 1,000 ml IV ASDIRECTED 01/13/19 17:18 BETA-2 MICROGLOBULIN, SERUM [REF] Routine PROTEIN ELEC INTERP, SERUM [REF] Routine 01/13/19 17:20 PLATELET ANTIBODY PROFILE [REF] Routine 01/13/19 17:26 LORazepam [Ativan] 0.5 mg PO Q8H PRN 01/14/19 05:17 BLOOD SMEARS TO PATHOLOGIST [REF] Routine cont current antibiotics . discussed with family boh - Assessment Assessment:: Altered mental status and weakness Fever of unknown origin Possible prostatitis - Plan Plan:: Assessment: Acute: AMS/Acute Confusion - Has baseline Dementia - Suspect 2/2 inadequate sleep and or stress ( recently had a horse accident and scheduled for surgery soon) - Head CT scan report read as stable senescent change. 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 No acute parenchymal change is see within either lungs - No complaints of SOB or Cough when asked this morning Chest Pain r/o ACS - Associated with shortness of breath - Troponin x 2 and CKMB x1 - have been negative - EKG shows Sinus Rhythm with Incomplete LB3 (had RB3 and LAFB on previous EKGs) - Completely Asymptomatic this morning Generalized Weakness - Too weak and had difficulty getting up and around - Vit D level - PT/OT to assess and treat Additional Chest CTA Abnormal Findings - Cysts within kidney, liver and pancreas Chronic: Hx/o Cataract, BPH, Renal Insufficiency, Recurrent U, Hx/o Pyelonephritis, Anemia, Alzheimer's Disease and 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 Informed her about patient's test results , diagnoses, treatment and possible discharge care plan. 01/13/2019 Assessment: Altered mental status and weakness Fever of unknown origin Possible prostatitis Plan: Continue antibiotics for 72 hours No acute neurological changes PT/OT/Speech therapy all seeing pt Screen for possible [place] virus
[2019-01-14] MEDS: Acetaminophen 325 MG Tab PO PRN (16:58)
--- NOTE | 2019-01-14 18:01 | PCM.SN ---
- Free Text/Narrative Note: respiking fever to 101 sweating while eating and reports no chest pain and no sob while on o2 . mildly anxious which seems his baseline . ekg reviewed and no injury pattern. lab abnormla this am includiing increasing crp. bl cultures neg and no def source identified but small left pneumonia questioned p.e no pharyngitis no stiff neck /ears normal lungs clear mostly with occasional wheeze cor reg with occasional pvcs murmur unchanged edema unchanged and mild abd benign ate supper no petechia lab redraw pending repeat chest xray pending . assess fever of unknown origin while on zozyn and azythromycin for possable chest infiltrate and will redraw blood cultures and consider antibiotic switch to Zosyn and Levaquin for better pseudomonas coverage
[2019-01-14] MEDS ORDERED: Levofloxacin/Dextrose 5%-Water 500 MG in Premix Bag 1 BAG IV SCH (19:15)
[2019-01-14] MEDS ORDERED: Levofloxacin/Dextrose 5%-Water 750 MG in Premix Bag 1 BAG IV SCH (20:00)
[2019-01-14] MEDS ORDERED: [UNRECOGNIZED DRUG - OTHER] PO SCH (21:00)
[2019-01-14] MEDS: DONEPEZIL 10 MG PO SCH (21:16)
[2019-01-15] MEDS: Acetaminophen 325 MG Tab PO PRN ×2 (00:21→16:26)
[2019-01-15] MEDS: Albuterol 0.083% 2.5 MG/3 ML Neb Soln NEB PRN ×3 (03:20→15:22)
[2019-01-15] MEDS: Piperacillin/Tazobactam 4.5 GM in Sodium Chloride 0.9% 100 ML IV SCH ×2 (05:42→14:33)
[2019-01-15] MEDS: Famotidine 20 MG Tab PO SCH (09:31)
[2019-01-15] MEDS: Cholecalciferol (Vitamin D3) 5,000 UNIT Tab PO SCH (09:31)
[2019-01-15] MEDS: Aspirin 81 MG Tab.EC PO SCH (09:33)
[2019-01-15] MEDS: FINASTERIDE 5 MG PO SCH (09:34)
[2019-01-15] MEDS: [UNRECOGNIZED DRUG - OTHER] PO SCH (09:35)
[2019-01-15] MEDS ORDERED: Furosemide 20 MG/2 ML VIAL IVPUSH ONE (12:36)
[2019-01-15] MEDS ORDERED: Diatrizoate Meglumine/Diatrizoate Sodium 37% 120 ML Bottle PO ONE (13:45)
[2019-01-15] MEDS ORDERED: Enoxaparin 100 MG/1 ML Syringe SUBCUT ONE (15:47)
--- NOTE | 2019-01-15 16:39 | PCM.DCSUM1 ---
Discharge Summary - Hospital Course Free Text/Narrative:: admitted 01/12 transferred to [facility] 01/15 reason for transfer resp insuff/ hematuria/sepsis/arf. accepting hosp. Dr Nielsen . by ambulance o2 2 liters telemetry i.v normal saline 75 cc /hr. meds npo en route see transfer note HPI Initial Comments: admitted with altered conc. confusion weakness and possible sepsis. ct scan of lungs no def. p.e or pneumonia . source of fever and infection unknown . developed acute renal failure and hematuria dn has low platelets of unknown origin on admission. 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 increasing resp insuff and decreasing urine output today abg see report resp acidosis mild repeat d dimer 10 vanco dced this am / and currrently on zosyn and ciproflox Diagnosis: Stroke: No - Discharge Data Discharge Date: 01/15/19 Discharge Disposition: DC/Tfer to Acute Hospital 02 Condition: Serious - Discharge Diagnosis/Problem(s) (1) Confusion SNOMED Code(s): 851091112 ICD Code: R41.0 - DISORIENTATION, UNSPECIFIED Status: Acute Priority: Medium Current Visit: Yes Onset Date: 01/13/19 (2) Hypoxia SNOMED Code(s): 136882604 ICD Code: R09.02 - HYPOXEMIA Status: Acute Priority: High Current Visit : Yes Onset Date: 01/13/19 (3) Acute renal insufficiency SNOMED Code(s): 060054692 ICD Code: N28.9 - DISORDER OF KIDNEY AND URETER, UNSPECIFIED Status: Acute Priority: High Current Visit: No Onset Date: 01/13/19 (4) Hematuria SNOMED Code(s): 08602020 ICD Code: R31.9 - HEMATURIA, UNSPECIFIED Status: Acute Priority: Medium Current Visit: Yes Onset Date: 01/14/19 Qualifiers: Hematuria type: gross Qualified Code(s): R31.0 - Gross hematuria (5) ARF (acute renal failure) SNOMED Code(s): 92643481 ICD Code: N17.9 - ACUTE KIDNEY FAILURE, UNSPECIFIED Status: Acute Current Visit: Yes Qualifiers: Acute renal failure type: with acute tubular necrosis Qualified Code(s): N17.0 - Acute kidney failure with tubular necrosis (6) Thrombocytopenia SNOMED Code(s): 135700337 ICD Code: D69.6 - THROMBOCYTOPENIA, UNSPECIFIED Status: Acute Current Visit: Yes (7) Anemia SNOMED Code(s): 952715815 ICD Code: D64.9 - ANEMIA, UNSPECIFIED Status: Acute Priority: Medium Current Visit: Yes Onset Date: 01/14/19 Qualifiers: Anemia type: unspecified type Qualified Code(s): D64.9 - Anemia, unspecified (8) Abnormal computed tomography of cecum and terminal ileum SNOMED Code(s): 50691850699496055, 63156487036478019 ICD Code: R93.3 - ABNORMAL FINDINGS ON DX IMAGING OF PRT DIGESTIVE TRACT Status: Acute Priority: Medium Current Visit: Yes Onset Date: 01/15/19 - Patient Summary/Data Consults: Consultations 01/12/19 09:47 Consult to Case Management/Senior Mechanical Designer [CONS] Routine Consult to Spiritual Care [CONS] Routine OT Evaluation and Treatment [CONS] Routine PT Evaluation and Treatment [CONS] Routine Respiratory Care Assess and Treatment [CONS] Routine - Patient Instructions Diet, Other: reg. - Discharge Plan *PRESCRIPTION DRUG MONITORING PROGRAM REVIEWED*: Not Applicable *COPY OF PRESCRIPTION DRUG MONITORING REPORT IN PATIENT RAMBO: Not Applicable Home Medications: Home Meds Donepezil HCl [Aricept] 10 mg PO BEDTIME 10/22/14 [History] Finasteride [Proscar] 5 mg PO DAILY 10/22/14 [History] Escitalopram [Lexapro] 20 mg PO DAILY 07/12/18 [History] Albuterol [Proventil Neb Soln] 2.5 mg NEB Q2H PRN neb 01/15/19 [Rx] Oxygen Flow Rate (L/min): 2 Maintain SPO2% less than: 94 Maintain SpO2% greater than: 90 Forms: ED Department Discharge Referrals: Antonio Barillas MD [Primary Care Provider] - - Discharge Summary/Plan Comment DC Time >30 min.: Yes (discussed transfer with family and accepting physisian and urology) - General Info Date of Service: 01/15/19 Admission Dx/Problem (Free Text: Admission Diagnosis/Problem Admission Diagnosis/Problem Hypoxia Altered mental status and weakness Fever of unknown origin Possible prostatitis resp failure uretrhral bleeding. hx of valvular heart disease hx of aortic valve replacement Subjective Update: 01/14/19 day 3 antibiotics for fever/confusion and possible sepsis vss/ telemetry normal iv at 50 cc hr p.e clear and not as anxious . confused and wants to get out of bed and go home . lungs clear but wheezes scattered cor apical murmur and radiates to carotids . abd benign. neuro negative oreintation blood cultures neg so far. cont antibiotics for presumed prostatitis a nd fever evaluated low platlets and anemia . boh Functional Status: Reports: Pain Controlled - Review of Systems General: Reports: Fever, Weakness, Fatigue Pulmonary: Reports: Shortness of Breath, Wheezing Genitourinary: Reports: Hematuria, Other (decreased urine output today ) Musculoskeletal: Reports: No Symptoms Skin: Reports: No Symptoms Neurological: Reports: Confusion Psychiatric: Reports: Confusion, Anxiety - Patient Data Vitals - Most Recent: Last Vital Signs Temp 37.3 C 01/15/19 12:49 Pulse 104 H 01/15/19 12:49 Resp 24 H 01/15/19 12:49 BP 136/68 01/15/19 12:49 Pulse Ox 92 L 01/15/19 15:24 Weight - Most Recent: 86.001 kg I&O - Last 24 hours: Intake & Output 01/15/19 01/15/19 01/15/19 06:59 14:59 22:59 Intake Total 627 120 500 Output Total 400 350 Balance 227 120 150 Lab Results - Last 24 hrs: Laboratory Results - last 24 hr 01/14/19 01/14/19 01/14/19 Range/Units 17:58 17:58 17:58 WBC 14.68 H (4.23-9.07) K/mm3 RBC 3.34 L (4.63-6.08) M/mm3 Hgb 9.8 L (13.7-17.5) gm/L Hct 31.4 L (40.1-51.0) % MCV 94.0 H (79.0-92.2) fl MCH 29.3 (25.7-32.2) pg MCHC 31.2 L (32.2-35.5) g/dl RDW Std Deviation 47.1 H (35.1-43.9) fL Plt Count 95 L (163-337) K/mm3 MPV 11.0 (9.4-12.3) fl Neut % (Auto) (34.0-67.9) % Lymph % (Auto) (21.8-53.1) % [place] % (Auto) (5.3-12.2) % Eos % (Auto) (0.8-7.0) Baso % (Auto) (0.1-1.2) % Neut # (Auto) (1.78-5.38) K/mm3 Lymph # (Auto) (1.32-3.57) K/mm3 [place] # (Auto) (0.30-0.82) K/mm3 Eos # (Auto) (0.04-0.54) K/mm3 Baso # (Auto) (0.01-0.08) K/mm3 Neutrophils % (Manual) 91 H (40-60) % Band Neutrophils % 5 (0-10) % Lymphocytes % (Manual) 2 L (20-40) % Atypical Lymphs % 0 % Monocytes % (Manual) 2 (2-10) % Eosinophils % (Manual) 0 L (0.8-7.0) % Basophils % (Manual) 0 L (0.2-1.2) Manual Slide Review Toxic Granulation 1+ slight Platelet Estimate Decreased Plt Morphology Comment Normal Acanthocytes (Spur) 1+ slight RBC Morph Comment Not Reportable D-Dimer, Quantitative (0.19-0.50) mg/L Puncture Site ABG pH (7.35-7.45) ABG pCO2 (35.0-45.0) mmHg ABG pO2 (80.0-100.0) mmHg ABG HCO3 (22.0-26.0) meq/L ABG O2 Saturation (96.0-97.0) % ABG Base Excess (-2-2.0) Joshua Test A-a Gradient mmHg O2 Delivery Device Oxygen Flow Rate FiO2 (21.00-100.00) % Sodium 139 (136-145) mEq/L Potassium 3.8 (3.5-5.1) mEq/L Chloride 107 (98-107) mEq/L Carbon Dioxide 23 (21-32) mEq/L Anion Gap 12.8 (5-15) BUN 20 H (7-18) mg/dL Creatinine 1.9 H (0.7-1.3) mg/dL Est Cr Clr Drug Dosing 29.00 mL/min Estimated GFR (MDRD) 34 (>60) mL/min BUN/Creatinine Ratio 10.5 L (14-18) Glucose 193 H (83-115) mg/dL Lactic Acid 2.4 H (0.4-2.0) mmol/L Calcium 7.6 L (8.5-10.1) mg/dL Magnesium (1.8-2.4) mg/dl Total Bilirubin 0.5 (0.2-1.0) mg/dL AST 27 (15-37) U/L ALT 39 (16-63) U/L Alkaline Phosphatase 137 H (46-116) U/L Troponin I (0.00-0.056) ng/mL C-Reactive Protein 28.4 H* (<1.0) mg/dL NT-Pro-B Natriuret Pep (0-450) pg/mL Total Protein 6.2 L (6.4-8.2) g/dl Albumin 2.4 L (3.4-5.0) g/dl Globulin 3.8 gm/dL Albumin/Globulin Ratio 0.6 L (1-2) Vancomycin Trough (10.0-20.0) 01/14/19 01/14/19 01/15/19 Range/Units 17:58 19:14 04:45 WBC 15.29 H (4.23-9.07) K/mm3 RBC 3.15 L (4.63-6.08) M/mm3 Hgb 9.2 L (13.7-17.5) gm/L Hct 29.1 L (40.1-51.0) % MCV 92.4 H (79.0-92.2) fl MCH 29.2 (25.7-32.2) pg MCHC 31.6 L (32.2-35.5) g/dl RDW Std Deviation 46.5 H (35.1-43.9) fL Plt Count 98 L (163-337) K/mm3 MPV 11.2 (9.4-12.3) fl Neut % (Auto) 81.4 H (34.0-67.9) % Lymph % (Auto) 5.2 L (21.8-53.1) % [place] % (Auto) 12.7 H (5.3-12.2) % Eos % (Auto) 0.1 L (0.8-7.0) Baso % (Auto) 0.1 (0.1-1.2) % Neut # (Auto) 12.47 H (1.78-5.38) K/mm3 Lymph # (Auto) 0.79 L (1.32-3.57) K/mm3 [place] # (Auto) 1.94 H (0.30-0.82) K/mm3 Eos # (Auto) 0.01 L (0.04-0.54) K/mm3 Baso # (Auto) 0.01 (0.01-0.08) K/mm3 Neutrophils % (Manual) (40-60) % Band Neutrophils % (0-10) % Lymphocytes % (Manual) (20-40) % Atypical Lymphs % % Monocytes % (Manual) (2-10) % Eosinophils % (Manual) (0.8-7.0) % Basophils % (Manual) (0.2-1.2) Manual Slide Review Abnormal smear Toxic Granulation Platelet Estimate Plt Morphology Comment Acanthocytes (Spur) RBC Morph Comment D-Dimer, Quantitative (0.19-0.50) mg/L Puncture Site ABG pH (7.35-7.45) ABG pCO2 (35.0-45.0) mmHg ABG pO2 (80.0-100.0) mmHg ABG HCO3 (22.0-26.0) meq/L ABG O2 Saturation (96.0-97.0) % ABG Base Excess (-2-2.0) Joshua Test A-a Gradient mmHg O2 Delivery Device Oxygen Flow Rate FiO2 (21.00-100.00) % Sodium (136-145) mEq/L Potassium (3.5-5.1) mEq/L Chloride (98-107) mEq/L Carbon Dioxide (21-32) mEq/L Anion Gap (5-15) BUN (7-18) mg/dL Creatinine (0.7-1.3) mg/dL Est Cr Clr Drug Dosing mL/min Estimated GFR (MDRD) (>60) mL/min BUN/Creatinine Ratio (14-18) Glucose (83-115) mg/dL Lactic Acid (0.4-2.0) mmol/L Calcium (8.5-10.1) mg/dL Magnesium 1.8 (1.8-2.4) mg/dl Total Bilirubin (0.2-1.0) mg/dL AST (15-37) U/L ALT (16-63) U/L Alkaline Phosphatase (46-116) U/L Troponin I 0.032 (0.00-0.056) ng/mL C-Reactive Protein (<1.0) mg/dL NT-Pro-B Natriuret Pep (0-450) pg/mL Total Protein (6.4-8.2) g/dl Albumin (3.4-5.0) g/dl Globulin gm/dL Albumin/Globulin Ratio (1-2) Vancomycin Trough 19.3 (10.0-20.0) 01/15/19 01/15/19 01/15/19 Range/Units 04:45 12:46 13:02 WBC (4.23-9.07) K/mm3 RBC (4.63-6.08) M/mm3 Hgb (13.7-17.5) gm/L Hct (40.1-51.0) % MCV (79.0-92.2) fl MCH (25.7-32.2) pg MCHC (32.2-35.5) g/dl RDW Std Deviation (35.1-43.9) fL Plt Count (163-337) K/mm3 MPV (9.4-12.3) fl Neut % (Auto) (34.0-67.9) % Lymph % (Auto) (21.8-53.1) % [place] % (Auto) (5.3-12.2) % Eos % (Auto) (0.8-7.0) Baso % (Auto) (0.1-1.2) % Neut # (Auto) (1.78-5.38) K/mm3 Lymph # (Auto) (1.32-3.57) K/mm3 [place] # (Auto) (0.30-0.82) K/mm3 Eos # (Auto) (0.04-0.54) K/mm3 Baso # (Auto) (0.01-0.08) K/mm3 Neutrophils % (Manual) (40-60) % Band Neutrophils % (0-10) % Lymphocytes % (Manual) (20-40) % Atypical Lymphs % % Monocytes % (Manual) (2-10) % Eosinophils % (Manual) (0.8-7.0) % Basophils % (Manual) (0.2-1.2) Manual Slide Review Toxic Granulation Platelet Estimate Plt Morphology Comment Acanthocytes (Spur) RBC Morph Comment D-Dimer, Quantitative 10.42 H (0.19-0.50) mg/L Puncture Site Lt radial ABG pH 7.39 (7.35-7.45) ABG pCO2 31.8 L (35.0-45.0) mmHg ABG pO2 62.0 L (80.0-100.0) mmHg ABG HCO3 18.9 L (22.0-26.0) meq/L ABG O2 Saturation 93.8 L (96.0-97.0) % ABG Base Excess -4.8 L (-2-2.0) Joshua Test Positive A-a Gradient 70 mmHg O2 Delivery Device Nasal cannula Oxygen Flow Rate 1.0 FiO2 24.00 (21.00-100.00) % Sodium 140 (136-145) mEq/L Potassium 3.5 (3.5-5.1) mEq/L Chloride 107 (98-107) mEq/L Carbon Dioxide 20 L (21-32) mEq/L Anion Gap 16.5 H (5-15) BUN 24 H (7-18) mg/dL Creatinine 2.7 H (0.7-1.3) mg/dL Est Cr Clr Drug Dosing 20.41 mL/min Estimated GFR (MDRD) 23 (>60) mL/min BUN/Creatinine Ratio 8.9 L (14-18) Glucose 140 H (83-115) mg/dL Lactic Acid (0.4-2.0) mmol/L Calcium 7.7 L (8.5-10.1) mg/dL Magnesium 1.9 (1.8-2.4) mg/dl Total Bilirubin (0.2-1.0) mg/dL AST (15-37) U/L ALT (16-63) U/L Alkaline Phosphatase (46-116) U/L Troponin I (0.00-0.056) ng/mL C-Reactive Protein 25.4 H* (<1.0) mg/dL NT-Pro-B Natriuret Pep (0-450) pg/mL Total Protein (6.4-8.2) g/dl Albumin (3.4-5.0) g/dl Globulin gm/dL Albumin/Globulin Ratio (1-2) Vancomycin Trough (10.0-20.0) 01/15/19 01/15/19 Range/Units 13:02 13:02 WBC (4.23-9.07) K/mm3 RBC (4.63-6.08) M/mm3 Hgb (13.7-17.5) gm/L Hct (40.1-51.0) % MCV (79.0-92.2) fl MCH (25.7-32.2) pg MCHC (32.2-35.5) g/dl RDW Std Deviation (35.1-43.9) fL Plt Count (163-337) K/mm3 MPV (9.4-12.3) fl Neut % (Auto) (34.0-67.9) % Lymph % (Auto) (21.8-53.1) % [place] % (Auto) (5.3-12.2) % Eos % (Auto) (0.8-7.0) Baso % (Auto) (0.1-1.2) % Neut # (Auto) (1.78-5.38) K/mm3 Lymph # (Auto) (1.32-3.57) K/mm3 [place] # (Auto) (0.30-0.82) K/mm3 Eos # (Auto) (0.04-0.54) K/mm3 Baso # (Auto) (0.01-0.08) K/mm3 Neutrophils % (Manual) (40-60) % Band Neutrophils % (0-10) % Lymphocytes % (Manual) (20-40) % Atypical Lymphs % % Monocytes % (Manual) (2-10) % Eosinophils % (Manual) (0.8-7.0) % Basophils % (Manual) (0.2-1.2) Manual Slide Review Toxic Granulation Platelet Estimate Plt Morphology Comment Acanthocytes (Spur) RBC Morph Comment D-Dimer, Quantitative (0.19-0.50) mg/L Puncture Site ABG pH (7.35-7.45) ABG pCO2 (35.0-45.0) mmHg ABG pO2 (80.0-100.0) mmHg ABG HCO3 (22.0-26.0) meq/L ABG O2 Saturation (96.0-97.0) % ABG Base Excess (-2-2.0) Joshua Test A-a Gradient mmHg O2 Delivery Device Oxygen Flow Rate FiO2 (21.00-100.00) % Sodium 140 (136-145) mEq/L Potassium 3.9 (3.5-5.1) mEq/L Chloride 108 H (98-107) mEq/L Carbon Dioxide 20 L (21-32) mEq/L Anion Gap 15.9 H (5-15) BUN 29 H (7-18) mg/dL Creatinine 3.7 H (0.7-1.3) mg/dL Est Cr Clr Drug Dosing 14.89 mL/min Estimated GFR (MDRD) 16 (>60) mL/min BUN/Creatinine Ratio 7.8 L (14-18) Glucose 156 H (83-115) mg/dL Lactic Acid (0.4-2.0) mmol/L Calcium 8.0 L (8.5-10.1) mg/dL Magnesium (1.8-2.4) mg/dl Total Bilirubin 0.5 (0.2-1.0) mg/dL AST 26 (15-37) U/L ALT 37 (16-63) U/L Alkaline Phosphatase 140 H (46-116) U/L Troponin I (0.00-0.056) ng/mL C-Reactive Protein (<1.0) mg/dL NT-Pro-B Natriuret Pep 6554 H (0-450) pg/mL Total Protein 6.0 L (6.4-8.2) g/dl Albumin 2.2 L (3.4-5.0) g/dl Globulin 3.8 gm/dL Albumin/Globulin Ratio 0.6 L (1-2) Vancomycin Trough (10.0-20.0) FERNANDO Results - Last 24 hrs: Microbiology 01/12/19 21:04 Aerobic Blood Culture - Preliminary Blood - Venous - Lab Draw NO GROWTH AFTER 2 DAYS Anaerobic Blood Culture - Final 01/12/19 20:54 Aerobic Blood Culture - Preliminary Blood - Venous NO GROWTH AFTER 2 DAYS Anaerobic Blood Culture - Preliminary NO GROWTH AFTER 2 DAYS Med Orders - Current: Current Medications Acetaminophen (Tylenol) 650 mg PO Q4H PRN PRN Reason: Pain (Mild 1-3)/fever Last Admin: 01/15/19 00:21 Dose: 650 mg Albuterol (Proventil Neb Soln) 2.5 mg NEB Q2H PRN PRN Reason: Shortness Of Breath/wheezing Last Admin: 01/15/19 15:22 Dose: 2.5 mg Aspirin (Halfprin) 81 mg PO DAILY [facility] Last Admin: 01/15/19 09:33 Dose: 81 mg Bisacodyl (Dulcolax) 5 mg PO DAILY PRN PRN Reason: Constipation Cholecalciferol (Vitamin D3) 5,000 unit PO DAILY [facility] [place] Last Admin: 01/15/19 09:31 Dose: 5,000 unit Docusate Sodium (Colace) 100 mg PO BID PRN PRN Reason: Constipation Famotidine (Pepcid) 20 mg PO BID [facility] [place] Last Admin: 01/15/19 09:31 Dose: 20 mg Promethazine HCl 6.25 mg/ (Sodium Chloride) 50.25 mls @ 100 mls/hr IV Q6H PRN PRN Reason: Nausea/Vomiting Piperacillin Sod/Tazobactam (Sod 4.5 gm/ Sodium Chloride) 100 mls @ 25 mls/hr IV Q8H [facility] [place] Last Admin: 01/15/19 14:33 Dose: 25 mls/hr Levofloxacin/Dextrose 750 mg/ (Premix) 150 mls @ 100 mls/hr IV Q48H [facility] Last Admin: 01/14/19 21:12 Dose: 100 mls/hr Ketorolac Tromethamine (Toradol) 30 mg IV Q6H PRN PRN Reason: Pain (moderate 4-6) Lorazepam (Ativan) 0.5 mg PO Q8H PRN PRN Reason: Anxiety Last Admin: 01/14/19 17:51 Dose: 0.5 mg Ondansetron HCl (Zofran) 4 mg IV Q6H PRN PRN Reason: Nausea/Vomiting Donepezil 10 Mg Tab. 0 each PO BEDTIME [facility] Last Admin: 01/14/19 21:16 Dose: 1 each Finasteride 5 Mg Tab (.) 0 each PO DAILY [facility] [place] Last Admin: 01/15/19 09:34 Dose: 1 each Escitalopram 20 Mg 0 each PO BEDTIME [facility] Last Admin: 01/14/19 21:16 Dose: 1 each Palmettoplex 0 each PO DAILY [facility] Last Admin: 01/15/19 09:35 Dose: 1 each Palmettoplex 0 each PO BEDTIME [facility] Last Admin: 01/14/19 21:16 Dose: 1 each Senna/Docusate Sodium (Senna Plus) 1 tab PO BID PRN PRN Reason: Constipation Sodium Chloride (Saline Flush) 10 ml FLUSH ASDIRECTED PRN PRN Reason: Keep Vein Open Last Admin: 01/11/19 17:49 Dose: 10 ml Temazepam (Restoril) 7.5 mg PO BEDTIME PRN PRN Reason: Sleep Discontinued Medications Albuterol (Proventil Neb Soln) 2.5 mg NEB ONETIME ONE Stop: 01/11/19 21:15 Last Admin: 01/11/19 21:21 Dose: 2.5 mg Aspirin (Aspirin) 324 mg PO ONETIME ONE Stop: 01/11/19 17:13 Last Admin: 01/11/19 21:22 Dose: Not Given Diatrizoate Meglum/Diatrizoate Sod (Gastrografin 37%) 90 ml PO ONETIME ONE Stop: 01/15/19 13:46 Last Admin: 01/15/19 14:16 Dose: 90 ml Enoxaparin Sodium (Lovenox) 90 mg SUBCUT ONETIME ONE Stop: 01/15/19 15:48 Furosemide (Lasix) 20 mg IVPUSH ONETIME ONE Stop: 01/15/19 12:37 Last Admin: 01/15/19 14:33 Dose: 20 mg Sodium Chloride (Normal Saline) 500 mls @ 500 mls/hr IV ONETIME ONE Stop: 01/11/19 19:03 Last Admin: 01/11/19 18:35 Dose: 500 mls/hr Sodium Chloride (Normal Saline) 100 mls @ 60 mls/hr IV ASDIRECTED [facility] Last Admin: 01/11/19 18:50 Dose: 60 mls/hr Sodium Chloride (Normal Saline) 1,000 mls @ 100 mls/hr IV ASDIRECTED [facility] Stop: 01/13/19 16:30 Last Infusion: 01/13/19 16:30 Dose: 50 mls/hr Ceftriaxone Sodium 2 gm/ (Sodium Chloride) 100 mls @ 200 mls/hr IV NOW STA Stop: 01/11/19 22:59 Last Admin: 01/11/19 22:59 Dose: 200 mls/hr Piperacillin Sod/Tazobactam (Sod 4.5 gm/ Sodium Chloride) 100 mls @ 200 mls/hr IV Q8H [facility] Stop: 01/12/19 21:29 Last Admin: 01/12/19 21:19 Dose: 200 mls/hr Vancomycin HCl 1 gm/Vancomycin HCl 500 mg/ Sodium Chloride 500 mls @ 250 mls/ hr IV ONETIME ONE Stop: 01/13/19 09:59 Last Admin: 01/13/19 08:41 Dose: 250 mls/hr Vancomycin HCl 1 gm/Vancomycin HCl 250 mg/ Sodium Chloride 250 mls @ 166.667 mls/hr IV Q12H [facility] Last Admin: 01/14/19 09:37 Dose: 166.667 mls/hr Sodium Chloride (Normal Saline) 1,000 mls @ 50 mls/hr IV ASDIRECTED [facility] Last Admin: 01/14/19 05:30 Dose: 50 mls/hr Iopamidol (Isovue-370 (76%)) 100 ml IVPUSH ONETIME ONE Stop: 01/11/19 18:49 Last Admin: 01/11/19 18:50 Dose: 100 ml Cyanocobalamin ( Vitamin B12) [ Vitamin B12] 1,500 Mcg 0 each PO DAILY [facility] Last Admin: 01/14/19 08:32 Dose: Not Given Escitalopram 20 Mg 0 each PO DAILY [facility] Last Admin: 01/13/19 08:43 Dose: 1 each Palmettoplex 3 Cap 0 each PO DAILY [facility] Last Admin: 01/13/19 08:45 Dose: 3 each Sertraline HCl (Zoloft) 25 mg PO DAILY [facility] Last Admin: 01/13/19 20:23 Dose: Not Given Sodium Chloride (Saline Flush) 10 ml FLUSH ONETIME ONE Stop: 01/11/19 18:49 Last Admin: 01/11/19 20:05 Dose: 10 ml Vancomycin HCl (Pharmacy To Dose - Vancomycin) 1 dose .XX ASDIRECTED [facility] - Exam Quality Assessment: Reports: Supplemental Oxygen General: Reports: Mild Distress, Moderate Distress HEENT: Reports: Pupils Equal, Pupils Reactive, EOMI, Mucous Membr. Moist/[place] Neck: Reports: Supple Lungs: Reports: Clear to Auscultation, Wheezing. Denies: Normal Respiratory Effort Cardiovascular: Reports: Regular Rate, Regular Rhythm GI/Abdominal Exam: Normal Bowel Sounds, Soft, Non-Tender, No Organomegaly, No Distention, No Abnormal Bruit, No Mass, Pelvis Stable (Male) Exam: No Hernia, Normal Inspection, Normal Prostate, Circumcised Rectal (Males) Exam: Normal Exam, Normal Rectal Tone, Prostate Normal Back Exam: Reports: Normal Inspection, Full Range of Motion Extremities: Normal Inspection, Normal Range of Motion, Non-Tender, No Pedal Edema, Normal Capillary Refill Skin: Reports: Warm, Dry, Intact Wound/Incisions: Reports: Healing Well Neurological: Reports: No New Focal Deficit Psy/Mental Status: Reports: Alert, Normal Affect, Normal Mood EKG INTERPRETATION Rhythm: NSR [place]: LAD-Left [place] Deviation P-Wave: Present QRS: Normal QT: Normal Comparison: No Change (old inferior and possable old anterior mi/ no acute changes boh)
[2019-01-15] MEDS ORDERED: Sodium Chloride 0.9% 1,000 ML ONE (16:44)
[2019-01-15] MEDS ORDERED: Sodium Chloride 0.9% 1,000 ML IV SCH (16:45)
[2019-01-15] MEDS ORDERED: Furosemide 40 MG/4 ML VIAL IVPUSH STA (17:26)
[2019-01-15] MEDS: Furosemide 100 MG/10 ML SDV ONE ×2 (17:30→18:13)
[2019-01-15 17:41] VITALS: BP 137/78; PULSE 122
--- NOTE | 2019-01-16 09:22 | CT ---
CT chest Technique: Multiple axial sections were obtained from above the lung apices inferiorly through the lung bases. Intravenous contrast was not utilized. Comparison: Prior CT chest performed as a pulmonary angiogram protocol dated 01/11/19. Findings: Very minimal left-sided pleural effusion is seen with small right-sided pleural effusion. Atherosclerotic calcification is noted within a mildly ectatic thoracic aorta. Coronary artery calcification is seen. Small mediastinal lymph nodes are noted which are felt to be within normal limits. No axillary adenopathy is seen. Minimal atelectasis is noted within the left lung base. Increased density is also noted within the right lung base most likely representing slightly more prominent atelectasis and less likely due to minimal area of pneumonia. Bone window settings were reviewed which show no acute osseous abnormality. Previous sternotomy is noted. Impression: 1. Minimal left-sided pleural effusion and small right-sided pleural effusion. 2. Minimal atelectasis within the left base. Slightly more prominent atelectasis within the right base. Right base density less likely represents small area of pneumonia. 3. Other findings believed to be incidental as noted above. Diagnostic code #3 CT abdomen and pelvis Technique: Multiple axial sections were obtained from above the dome of the diaphragm inferiorly through the pubic symphysis. Intravenous contrast was not utilized. Oral contrast has been given. No prior CT abdomen or pelvis exam is available. Findings: Contrast noted within the distal esophagus which is felt compatible with gastroesophageal reflux. Noncontrast appearance of the liver shows no discrete abnormality. Spleen shows no discrete abnormality. Low density lesion is noted within the upper left kidney and smaller low density lesion noted within the lower left kidney believed to represent small cortical cysts. Parapelvic cyst are noted within the left kidney. Aorta shows atherosclerotic calcification without aneurysm. Slightly prominent lymph nodes are noted within the retroperitoneum. Soft tissue abnormality is noted within the cecum and difficult to exclude cecal mass which may be neoplastic or inflammatory. There is inflammatory change being seen within the right lower abdomen, etiology is not certain. Appendix not definitely visualized. Diverticuli are seen within the sigmoid colon without findings of diverticulitis. Prominent lymph nodes are also noted along the left iliac region. No bowel dilatation is seen. Bone window settings were reviewed which shows a mild compression deformity of L2 which is most likely old. Degenerative apophyseal change noted within the lumbar spine. No acute osseous abnormality is identified. Impression: 1. Soft tissue abnormality within the cecum. This may represent mass, either inflammatory or neoplastic. Endoscopy would be helpful to further evaluate. 2. Mild adenopathy within the retroperitoneum as well as along the left iliac chain. 3. Nonspecific inflammatory change within the right lower abdomen. Appendix is not visualized with certainty. 4. Gastroesophageal reflux. Diagnostic code #9 I agree with preliminary report from [facility], finalized on 01/15/19, 3:36 PM Central Time
== END 2019-01-15 17:45 | DRG 871 ==
LOC: JD.ED 16:57 → JD.MS 23:36 → OBSVTOIN 01-14 18:09
PROVIDERS: ADMIT Internal Medicine; ATTEND Internal Medicine
DX: A41.9 Sepsis, unspecified organism (principal); R50.9 Fever, unspecified; R06.02 Shortness of breath; J18.9 Pneumonia, unspecified organism; N17.9 Acute kidney failure, unspecified; R07.9 Chest pain, unspecified; N41.9 Inflammatory disease of prostate, unspecified; N28.9 Disorder of kidney and ureter, unspecified; D69.6 Thrombocytopenia, unspecified; Z95.2 Presence of prosthetic heart valve; N40.0 Benign prostatic hyperplasia without lower urinary tract symptoms; D64.9 Anemia, unspecified; R93.3 Abnormal findings on diagnostic imaging of other parts of digestive tract; H91.92 Unspecified hearing loss, left ear; G30.9 Alzheimer's disease, unspecified; H26.9 Unspecified cataract; N18.9 Chronic kidney disease, unspecified; F32.9 Major depressive disorder, single episode, unspecified; R53.1 Weakness; N28.1 Cyst of kidney, acquired; K76.89 Other specified diseases of liver; K86.2 Cyst of pancreas; R31.0 Gross hematuria; F02.80 Dementia in other diseases classified elsewhere, unspecified severity, without behavioral disturbance, psychotic disturbance, mood disturbance, and anxiety; H54.7 Unspecified visual loss; M54.9 Dorsalgia, unspecified; G89.29 Other chronic pain; Z85.828 Personal history of other malignant neoplasm of skin; Z87.891 Personal history of nicotine dependence; Z95.3 Presence of xenogenic heart valve; Z79.82 Long term (current) use of aspirin; Z79.51 Long term (current) use of inhaled steroids; Z79.899 Other long term (current) drug therapy; Z86.73 Personal history of transient ischemic attack (TIA), and cerebral infarction without residual deficits; Z99.81 Dependence on supplemental oxygen
CPT/HCPCS: 36415 ×4; 70450; 71045 ×2; 71275; 80048 ×2; 80053 ×2; 81001 ×2; 82232; 82306; 82553; 82607; 83540; 83605 ×2; 83690; 83735 ×4; 83880; 84155; 84165; 84484 ×3; 85007 ×3; 85025 ×2; 85027 ×3; 85045; 85046; 85379; 85610; 85730; 86022 ×5; 86140 ×4; 87040 ×4; 87086; 87486; 87581; 87632; 87798; 93005; 94640 ×2; 94760 ×2; 96361 ×4; 96365; 96366 ×2; 96367 ×2; 97161; 97165; 97535 ×2; 99285; A9270 ×11; G0378 ×3; J0696; J2543 ×6; J3370 ×6; J7030 ×8; J7040 ×8; J7050 ×2; Q9967; 36600; 71250; 71250-26; 74176; 74176-26; 80202; 82270; 82803; 93010; 94761; 99284; J1650; J1940; J1956; Q9963

== ENCOUNTER 2019-01-31 20:57 | Emergency (ER) | payer MEDICARE, BC ==
[2019-01-31 21:11] VITALS: BP 116/82; PULSE 85
[2019-01-31] MEDS ORDERED: Sodium Chloride 0.9% 1,000 ML IV ONE (22:59)
--- NOTE | 2019-01-31 23:04 | EDM.PDOC ---
ED HPI GENERAL MEDICAL PROBLEM - General Chief Complaint: Syncope Stated Complaint: [facility] Time Seen by Provider: 01/31/19 22:31 Source of Information: Reports: Family (, daughter) History Limitations: Reports: Altered Mental Status (Patient has dementia) - History of Present Illness INITIAL COMMENTS - FREE TEXT/NARRATIVE: The patient's very pleasant daughter and tell me that the patient has a past medical history significant for Alzheimer dementia and end-stage renal disease, who received a hemodialysis catheter on 01/17/2019, and was either started on hemodialysis that day or the day after. He initially had several HD treatments, then settled into scheduled dialysis every Wednesday, , and Wednesday. His most recent dialysis was today, where, the patient' s daughter was told, 2 L of fluid was removed. She is not sure of the patient's dry weight, but she believes it is 79 kg. His weight today after dialysis was 77.4 kg. The family tells me that the patient was resting in a recliner, then, when he got up, he suffered a near-syncopal episode, falling to his hands and knees with the assistance of his and daughter. He crawled for a distance before collapsing, although it is not clear that he actually passed out. He then had a second near-syncopal episode while going upstairs, falling onto his daughter, then had an actual syncopal episode while on the toilet. The family tells me that the patient has been more tired and sleepy for the past 3 days than usual. No recent fever, cough, chest pain, palpitations, nausea, vomiting, or constipation. He has, however, had gross hematuria ever since he underwent a kidney biopsy on 01/20/2019, and he has had bloody loose bowel movements on and off for the past 2 weeks, as well. Because they have only seen blood in the toilet, they are not sure if his bowel movements have been bright or dark red. They were told that both the hematuria and bloody bowel movements were related to his starting dialysis. The patient's PCP is Dr. Antonio Barillas. His Bus Inspector is Dr. Hema Glover. His Membership Director is Dr. Alphonso Marie. His Thoracic Surgeon is Dr. Wolf Phelps. - Related Data Allergies Allergy/AdvReac Type Severity Reaction Status Date / Time No Known Allergies Allergy Verified 01/31/19 21:11 Home Meds: Home Meds Donepezil HCl [Aricept] 10 mg PO BEDTIME 10/22/14 [History] Finasteride [Proscar] 5 mg PO DAILY 10/22/14 [History] Escitalopram [Lexapro] 20 mg PO DAILY 07/12/18 [History] Calcium Acetate [PhosLo] 667 mg PO TID 01/31/19 [History] QUEtiapine [SEROquel] 25 mg PO TID PRN 01/31/19 [History] Past Medical History HEENT History: Reports: Hard of Hearing, Impaired Vision, Other (See Below) Other HEENT History: wears glasses, has hearing aids, has upper and lower dentures Genitourinary History: Reports: BPH, Dialysis (Q ,,) Neurological History: Reports: Alzheimers Disease Psychiatric History: Reports: Depression Hematologic History: Reports: Anemia - Past Surgical History HEENT Surgical History: Reports: Cataract Surgery (bilateral) Cardiovascular Surgical History: Reports: Aneurysm (ascending aorta, 2004), Valve Replacement (porcine aortic, 2004), Other (See Below) (Right HD catheter, 01/17/2019) GI Surgical History: Reports: Colonoscopy (x 2), Hernia, Inguinal Musculoskeletal Surgical History: Reports: 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 - Physical Exam Exam: See Below Exam Limited By: No Limitations General Appearance: WD/WN, No Apparent Distress, Other (Sleeping, but wakeable) Eye Exam: Bilateral Eye: EOMI, Normal Inspection (Post-catatact surgery) Ears: Normal External Exam, Hearing Loss Nose: Normal Inspection Throat/Mouth: Normal Inspection, Normal Lips, Normal Voice, No Airway Compromise Head Exam: Atraumatic, Normocephalic Neck: Normal Inspection, Full Range of Motion Respiratory/Chest: No Respiratory Distress, Lungs Clear, Normal Breath Sounds, No Accessory Muscle Use Cardiovascular: Normal Peripheral Pulses, Regular Rate, Rhythm, No Edema, No Gallop, No JVD, No Murmur, No Rub GI/Abdominal: Normal Bowel Sounds, Soft, No Organomegaly, No Distention, No Abnormal Bruit, No Mass, Tender (Mild, generalized - the patient's says it is chronic) (Male) Exam: Deferred Rectal (Males) Exam: Normal Exam (small non-thrombosed external hemorrhoid), Normal Rectal Tone, Heme - Stool (moyer color) Neuro Exam (Abbreviated): No Motor/Sensory Deficits Back Exam: Normal Inspection, Full Range of Motion, NT Extremities: Normal Inspection, Normal Range of Motion, No Pedal Edema, Normal Capillary Refill Psychiatric: Normal Affect Skin Exam: Warm, Dry, Intact, Normal Color, No Rash EKG INTERPRETATION EKG Date: 02/01/19 Time: 00:20 Rhythm: NSR Rate (Beats/Min): 81 [place]: LAD-Left [place] 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) P-Wave: Present (1 AVB) QRS: Normal (Late transition) ST-T: Normal QT: Prolonged (QTc 494 ms) Comparison: Change From Previous EKG (1 AVB, late transition, QTc prolongation new since 01/15/2019) Course - Vital Signs Last Recorded V/S: Last Vital Signs Temp 36.0 C 01/31/19 21:06 Pulse 85 01/31/19 21:06 Resp 13 01/31/19 21:06 BP 116/82 01/31/19 21:06 Pulse Ox 92 L 01/31/19 21:06 Orthostatic Blood Pressure [ 112/70 Standing] Orthostatic Blood Pressure [ 130/84 Supine] - Orders/Labs/Meds Orders: Active Orders 24 hr Category Date Time Status EKG Documentation Completion [RC] STAT Care 01/31/19 22:58 Active Insert Lizama Catheter [Insert Urinary Catheter] [OM.PC] Care 02/01/19 01:27 Ordered Stat Orthostatic Vital Signs [RC] ASDIRECTED Care 01/31/19 21:27 Active Orthostatic Vital Signs [RC] STAT Care 01/31/19 22:59 Active Orthostatic Vital Signs [RC] STAT Care 02/01/19 01:08 Active CULTURE URINE [RM] Stat Lab 02/01/19 01:00 Received Labs: Laboratory Tests 01/31/19 01/31/19 02/01/19 Range/Units 23:20 23:20 01:05 WBC 9.07 (4.23-9.07) K/mm3 RBC 2.71 L (4.63-6.08) M/mm3 Hgb 7.9 L (13.7-17.5) gm/dl Hct 25.7 L (40.1-51.0) % MCV 94.8 H (79.0-92.2) fl MCH 29.2 (25.7-32.2) pg MCHC 30.7 L (32.2-35.5) g/dl RDW Std Deviation 43.4 (35.1-43.9) fL Plt Count 136 L (163-337) K/mm3 MPV 9.1 L (9.4-12.3) fl Neutrophils % (Manual) 90 H (40-60) % Band Neutrophils % 0 (0-10) % Lymphocytes % (Manual) 7 L (20-40) % Atypical Lymphs % 0 % Monocytes % (Manual) 2 (2-10) % Eosinophils % (Manual) 0 L (0.8-7.0) % Basophils % (Manual) 1 (0.2-1.2) Platelet Estimate Adequate Plt Morphology Comment Normal Hypochromasia 1+ slight Microcytosis 1+ slight RBC Morph Comment Not Reportable Sodium 143 (136-145) mEq/L Potassium 3.7 (3.5-5.1) mEq/L Chloride 104 (98-107) mEq/L Carbon Dioxide 32 D (21-32) mEq/L Anion Gap 10.7 (5-15) BUN 20 H (7-18) mg/dL Creatinine 2.3 H D (0.7-1.3) mg/dL Est Cr Clr Drug Dosing TNP Estimated GFR (MDRD) 27 (>60) mL/min BUN/Creatinine Ratio 8.7 L (14-18) Glucose 127 H (83-115) mg/dL Calcium 8.7 (8.5-10.1) mg/dL Magnesium 1.6 L (1.8-2.4) mg/dl Total Bilirubin 0.3 (0.2-1.0) mg/dL AST 16 (15-37) U/L ALT 16 (16-63) U/L Alkaline Phosphatase 106 (46-116) U/L Total Protein 7.6 (6.4-8.2) g/dl Albumin 2.8 L (3.4-5.0) g/dl Globulin 4.8 gm/dL Albumin/Globulin Ratio 0.6 L (1-2) Urine Color Red H (Yellow) Urine Appearance Turbid H (Clear) Urine pH 8.5 H (5.0-8.0) Ur Specific [place] 1.010 (1.005-1.030) Urine Protein 3+ H (Negative) Urine Glucose (UA) Trace H (Negative) Urine Ketones 1+ H (Negative) Urine Occult Blood 3+ H (Negative) Urine Nitrite Positive H (Negative) Urine Bilirubin 3+ H (Negative) Urine Urobilinogen >=8.0 H (0.2-1.0) Ur Leukocyte Esterase 3+ H (Negative) Urine RBC Too numerous to cnt H (0-5) /hpf Urine WBC 0-5 (0-5) /hpf Ur Epithelial Cells 0-5 (0-5) /hpf Urine Bacteria Moderate H (FEW) /hpf Urine Mucus Rare (FEW) /hpf Meds: Medications Discontinued Medications Generic Name Dose Route Start Last Admin Trade Name Freq PRN Reason Stop Dose Admin Sodium Chloride 1,000 mls @ 999 mls/hr 01/31/19 22:59 01/31/19 23:13 Normal Saline IV 01/31/19 23:59 999 mls/hr ONETIME ONE Administration Sodium Chloride 1,000 mls @ 999 mls/hr 02/01/19 01:07 02/01/19 01:14 Normal Saline IV 02/01/19 02:07 999 mls/hr ONETIME ONE Administration Ceftriaxone Sodium 1 gm/ 100 mls @ 200 mls/hr 02/01/19 01:44 02/01/19 01:54 Sodium Chloride IV 02/01/19 02:13 200 mls/hr ONETIME STA Administration - Re-Assessments/Exams Free Text/Narrative Re-Assessment/Exam: 01/31/19 23:00 The patient was orthostatic, likely due to intravascular depletion from excess fluid being removed at hemodialysis earlier today. He will receive 1 L of IV fluid, then we will recheck orthostatics. In the meantime, I have ordered some blood work, and I would like the nurse to collect a urine sample by quick catheter, just to make sure that he does not have an underlying UTI. 02/01/19 01:08 Following 1 L of IV fluid, the patient is still orthostatic. I have ordered a second liter of IV fluid, to be followed by repeat orthostatics. 02/01/19 01:44 The patient's CBC is remarkable for an H/H depressed at 7.9/25.7, and platelets depressed at 136,000. The remainder of the CBC is unremarkable. His CMP is remarkable for a BUN/Cr of 20/2.3, and a blood glucose mildly elevated at 127. The remainder of the CMP is unremarkable. His magnesium level is slightly low at 1.6. His urinalysis is consistent with a UTI. I have ordered a urine culture, and will start the patient on IV Rocephin. Because the patient is in renal failure, a repeat dose of Rocephin is not needed. 02/01/19 02:55 Following a second liter of IV fluid, the patient is still orthostatic, although it is marginal. Rather than transferring him to [place] for such a subtle filling, I will have the patient's nurse ambulate the patient to see if he is still symptomatic, and if so, perhaps we can give him a little more IV fluid. 02/01/19 03:08 Notified by Ariela ZAMORA that the patient did well with ambulation. 02/01/19 03:54 Test results discussed at length with the patient's daughter and . Both are a bit concerned about taking the patient home, but both agree that transferring him to [place] would be worse, and, unfortunately, because he is on dialysis, I cannot admit him to this hospital, even overnight. My recommendation is that the patient stay adequately hydrated. The patient's daughter and will ensure that the patient does not stand up too quickly. The daughter will call Dr. Glover's office in the morning to advise them of what happened to the patient, and let them know about his H/H; Dr. Glover may already be aware of his anemia and may already be treating him with erythropoietin, on the other hand, he may want to transfuse PRBCs during 's dialysis. The patient will then go to hemodialysis on , 02/02/2019, then follow-up with Dr. Barillas at his previously scheduled appointment that afternoon. Dr. Barillas may or may not want to treat the patient's UTI with an additional oral antibiotic based on the urine culture results. Departure - Departure Time of Disposition: 03:59 Disposition: Home, Self-Care 01 Condition: Good Clinical Impression: Orthostasis, UTI (urinary tract infection), End-stage renal disease on hemodialysis Anemia Qualifiers: Anemia type: unspecified type Qualified Code(s): D64.9 - Anemia, unspecified - Discharge Information *PRESCRIPTION DRUG MONITORING PROGRAM REVIEWED*: Not Applicable *COPY OF PRESCRIPTION DRUG MONITORING REPORT IN PATIENT RAMBO: Not Applicable Referrals: Antonio Barillas MD [Primary Care Provider] - Hema Glover MD [Ordering Only Provider] - Alphonso Marie MD [Ordering Only Provider] - Wolf Phelps MD, PhD [Consulting Physician] - Forms: ED Department Discharge Additional Instructions: Mr. Morelos was seen in the emergency room after nearly passing out twice, then actually passing out when on the toilet, following hemodialysis. Workup in the ER included blood work, a urinalysis, positional blood pressure checks, and an ECG. His blood pressure dropped excessively between lying and standing, a condition known as orthostasis. He was given 2 L of IV fluid, and his blood pressure numbers nearly normalized, and he was no longer lightheaded when he stood up. Make sure that he stays adequately hydrated, and someone needs to monitor him when he stands up, to make sure that he does not get too lightheaded. Call the office of Dr. Glover in the morning, to advise them of what happened to Mr. Morelos, and to let them know that his hemoglobin was 7.9 and his hematocrit 25.7. Mr. Morelos's urinalysis found that he has a urinary tract infection. He was given 1 g of the antibiotic Rocephin in the ER. Mr. Morelos should go to his dialysis on , 02/02/2019. After dialysis, Mr. Morelos should follow-up with Dr. Barillas at his previously scheduled appointment that afternoon. Dr. Barillas may want to prescribe an antibiotic for Mr. Morelos based on the urine culture results. If any other problems, please do not hesitate to return Mr. Morelos to the ER. - My Orders Last 24 Hours: My Active Orders 01/31/19 21:27 Orthostatic Vital Signs [RC] ASDIRECTED 01/31/19 22:58 EKG Documentation Completion [RC] STAT 01/31/19 22:59 Orthostatic Vital Signs [RC] STAT 02/01/19 01:00 CULTURE URINE [RM] Stat 02/01/19 01:08 Orthostatic Vital Signs [RC] STAT 02/01/19 01:27 Insert Lizama Catheter [Insert Urinary Catheter] [OM.PC] Stat - Assessment/Plan Last 24 Hours: My Active Orders 01/31/19 21:27 Orthostatic Vital Signs [RC] ASDIRECTED 01/31/19 22:58 EKG Documentation Completion [RC] STAT 01/31/19 22:59 Orthostatic Vital Signs [RC] STAT 02/01/19 01:00 CULTURE URINE [RM] Stat 02/01/19 01:08 Orthostatic Vital Signs [RC] STAT 02/01/19 01:27 Insert Lizama Catheter [Insert Urinary Catheter] [OM.PC] Stat
[2019-02-01] MEDS ORDERED: Sodium Chloride 0.9% 1,000 ML IV ONE (01:07)
[2019-02-01] MEDS ORDERED: cefTRIAXone 1 GM in Sodium Chloride 0.9% 100 ML IV STA (01:44)
== END 2019-02-01 04:20 | disposition home or self-care (01) ==
LOC: JD.ED 20:57
DX: N39.0 Urinary tract infection, site not specified (principal); N18.6 End stage renal disease; Z99.2 Dependence on renal dialysis; D64.9 Anemia, unspecified; G30.9 Alzheimer's disease, unspecified; F02.80 Dementia in other diseases classified elsewhere, unspecified severity, without behavioral disturbance, psychotic disturbance, mood disturbance, and anxiety; F32.9 Major depressive disorder, single episode, unspecified; Z79.899 Other long term (current) drug therapy
CPT/HCPCS: 36415; 80053; 81001; 83735; 85007; 85027; 87086; 93005; 96361; 96365; 99284; J0696; J7030; J7040; 93010

== ENCOUNTER 2022-06-17 04:26 | Emergency (ER) | payer MEDICARE, BC ==
[2022-06-17] MEDS ORDERED: Pantoprazole 40 MG Vial IVPUSH ONE (05:36)
[2022-06-17] MEDS ORDERED: Pantoprazole 80 MG in Sodium Chloride 0.9% 100 ML IV SCH (05:45)
[2022-06-17] MEDS ORDERED: Sodium Chloride 0.9% 1,000 ML IV ONE (06:46)
[2022-06-17] MEDS ORDERED: cefTRIAXone 1 GM in Sodium Chloride 0.9% 100 ML IV STA (07:29)
[2022-06-17 09:29] VITALS: BP 119/69; PULSE 99
== END 2022-06-17 09:30 ==
LOC: JD.ED 04:26
DX: K92.2 Gastrointestinal hemorrhage, unspecified (principal); N39.0 Urinary tract infection, site not specified; N18.6 End stage renal disease; I44.0 Atrioventricular block, first degree; Z91.041 Radiographic dye allergy status; Z79.82 Long term (current) use of aspirin; Z79.899 Other long term (current) drug therapy
CPT/HCPCS: 36415; 70450; 80053; 81001; 82947; 83605; 83690; 83735; 84484; 85007; 85027; 85610; 85730; 86850; 86900; 86901; 87040; 87086; 93005; 96365; 96366; 96368; 96376; 99285; C9113; J0696; J7030

== ENCOUNTER 2022-08-31 16:44 | Inpatient (IN) | payer MEDICARE, BC ==
[2022-08-31] MEDS ORDERED: Sodium Chloride 0.9% 10 ML Syringe FLUSH PRN (17:40)
[2022-08-31] MEDS ORDERED: Albuterol/Ipratropium 3.0-0.5 MG/3 ML Neb Soln NEB ONE (17:41)
[2022-08-31] MEDS: Sodium Chloride 0.9% 1,000 ML IV SCH (18:34)
[2022-08-31] MEDS ORDERED: Acetaminophen/oxyCODONE 325-5 MG Tab PO PRN (19:14)
[2022-08-31] MEDS ORDERED: Docusate Sodium 100 MG Cap PO PRN (19:14)
[2022-08-31] MEDS ORDERED: Acetaminophen 325 MG Tab PO PRN (19:14)
[2022-08-31] MEDS ORDERED: Psyllium Husk Powder Sugar Free 5.85 GM Packet PO PRN (19:14)
[2022-08-31] MEDS ORDERED: Albuterol/Ipratropium 3.0-0.5 MG/3 ML Neb Soln NEB PRN (19:14)
[2022-08-31] MEDS ORDERED: Ondansetron 4 MG/2 ML SDV IVPUSH PRN (19:14)
[2022-08-31] MEDS ORDERED: HYDROmorphone 0.5 MG/0.5 ML Syringe IVPUSH PRN (19:14)
[2022-08-31] MEDS ORDERED: hydrALAZINE 20 MG/ML SDV IVPUSH PRN (19:14)
[2022-08-31] MEDS ORDERED: Dexamethasone 6 MG TABLET PO SCH (19:30)
[2022-08-31] MEDS ORDERED: QUEtiapine 25 MG Tab PO PRN (19:45)
[2022-08-31] MEDS ORDERED: Insulin Lispro 100 Unit/ML 3 ML KwikPen SUBCUT SCH (21:00)
[2022-08-31] MEDS: Albuterol/Ipratropium 3.0-0.5 MG/3 ML Neb Soln NEB SCH (21:01)
[2022-08-31] MEDS: Donepezil 10 MG Tab PO SCH (21:42)
[2022-08-31] MEDS: cefTRIAXone 1 GM in Sodium Chloride 0.9% 100 ML IV SCH (21:43)
[2022-08-31] MEDS: Insulin Lispro 100 Unit/ML 3 ML KwikPen SUBCUT SCH (21:43)
[2022-08-31] MEDS: Heparin Sodium 5,000 Units/ML Vial SUBCUT SCH (22:45)
[2022-09-01] MEDS: Albuterol/Ipratropium 3.0-0.5 MG/3 ML Neb Soln NEB SCH ×4 (02:54→21:21)
[2022-09-01] MEDS: Sodium Chloride 0.9% 1,000 ML IV SCH (05:40)
[2022-09-01] MEDS: Heparin Sodium 5,000 Units/ML Vial SUBCUT SCH ×3 (05:40→21:12)
[2022-09-01] MEDS: Insulin Lispro 100 Unit/ML 3 ML KwikPen SUBCUT SCH ×4 (07:23→23:22)
[2022-09-01] MEDS: Fish Oil/Omega-3 Fatty Acids 1 Gm Cap PO SCH (08:00)
[2022-09-01] MEDS: Multivitamin Tab PO SCH (08:01)
[2022-09-01] MEDS: Citalopram 20 MG Tab PO SCH (08:01)
[2022-09-01] MEDS: Azithromycin 250 MG Tab PO SCH (08:01)
[2022-09-01] MEDS: Cyanocobalamin (Vitamin B12) 1,000 MCG Tab PO SCH (08:01)
[2022-09-01] MEDS: Finasteride 5 MG Tab PO SCH (08:02)
[2022-09-01] MEDS: Aspirin 81 MG Tab.EC PO SCH (08:02)
[2022-09-01] MEDS: Insulin Glargine,Human Rec. Analog 100 Units/ML 3 ML Pen SUBCUT SCH (08:06)
[2022-09-01] MEDS: methylPREDNISolone Sodium Succinate 40 MG/1 ML SDV IVPUSH SCH ×2 (11:32→23:22)
[2022-09-01] MEDS ORDERED: Dexamethasone 6 MG TABLET PO SCH (21:00)
[2022-09-01] MEDS: cefTRIAXone 1 GM in Sodium Chloride 0.9% 100 ML IV SCH (21:10)
[2022-09-01] MEDS: Donepezil 10 MG Tab PO SCH (21:12)
[2022-09-02] MEDS: Albuterol/Ipratropium 3.0-0.5 MG/3 ML Neb Soln NEB SCH ×5 (02:51→21:46)
[2022-09-02] MEDS: Heparin Sodium 5,000 Units/ML Vial SUBCUT SCH ×3 (06:32→21:30)
[2022-09-02] MEDS: Insulin Lispro 100 Unit/ML 3 ML KwikPen SUBCUT SCH ×4 (09:28→21:31)
[2022-09-02] MEDS: Azithromycin 250 MG Tab PO SCH (09:29)
[2022-09-02] MEDS: Finasteride 5 MG Tab PO SCH (09:29)
[2022-09-02] MEDS: Multivitamin Tab PO SCH (09:29)
[2022-09-02] MEDS: Cyanocobalamin (Vitamin B12) 1,000 MCG Tab PO SCH (09:29)
[2022-09-02] MEDS: Aspirin 81 MG Tab.EC PO SCH (09:29)
[2022-09-02] MEDS: Citalopram 20 MG Tab PO SCH (09:29)
[2022-09-02] MEDS: Fish Oil/Omega-3 Fatty Acids 1 Gm Cap PO SCH (09:29)
[2022-09-02] MEDS: Insulin Glargine,Human Rec. Analog 100 Units/ML 3 ML Pen SUBCUT SCH (09:30)
[2022-09-02] MEDS: methylPREDNISolone Sodium Succinate 40 MG/1 ML SDV IVPUSH SCH ×2 (09:30→20:13)
[2022-09-02] MEDS: cefTRIAXone 1 GM in Sodium Chloride 0.9% 100 ML IV SCH (20:13)
[2022-09-02] MEDS: Donepezil 10 MG Tab PO SCH (20:13)
[2022-09-03] MEDS: Albuterol/Ipratropium 3.0-0.5 MG/3 ML Neb Soln NEB SCH ×4 (02:33→21:53)
[2022-09-03] MEDS: Heparin Sodium 5,000 Units/ML Vial SUBCUT SCH ×3 (06:12→22:27)
[2022-09-03] MEDS: Insulin Lispro 100 Unit/ML 3 ML KwikPen SUBCUT SCH ×4 (08:32→21:41)
[2022-09-03] MEDS: Insulin Glargine,Human Rec. Analog 100 Units/ML 3 ML Pen SUBCUT SCH (08:32)
[2022-09-03] MEDS: Citalopram 20 MG Tab PO SCH (08:33)
[2022-09-03] MEDS: Azithromycin 250 MG Tab PO SCH (08:33)
[2022-09-03] MEDS: Finasteride 5 MG Tab PO SCH (08:33)
[2022-09-03] MEDS: Cyanocobalamin (Vitamin B12) 1,000 MCG Tab PO SCH (08:33)
[2022-09-03] MEDS: methylPREDNISolone Sodium Succinate 40 MG/1 ML SDV IVPUSH SCH ×2 (08:33→20:18)
[2022-09-03] MEDS: Multivitamin Tab PO SCH (08:33)
[2022-09-03] MEDS: Fish Oil/Omega-3 Fatty Acids 1 Gm Cap PO SCH (08:33)
[2022-09-03] MEDS: Aspirin 81 MG Tab.EC PO SCH (08:33)
[2022-09-03] MEDS: Donepezil 10 MG Tab PO SCH (20:18)
[2022-09-03] MEDS: cefTRIAXone 1 GM in Sodium Chloride 0.9% 100 ML IV SCH (20:18)
[2022-09-04] MEDS: Albuterol/Ipratropium 3.0-0.5 MG/3 ML Neb Soln NEB SCH ×4 (02:32→21:11)
[2022-09-04] MEDS: Heparin Sodium 5,000 Units/ML Vial SUBCUT SCH ×3 (05:05→21:45)
[2022-09-04] MEDS: Insulin Lispro 100 Unit/ML 3 ML KwikPen SUBCUT SCH ×4 (06:32→21:36)
[2022-09-04] MEDS: Aspirin 81 MG Tab.EC PO SCH (10:33)
[2022-09-04] MEDS: Cyanocobalamin (Vitamin B12) 1,000 MCG Tab PO SCH (10:33)
[2022-09-04] MEDS: Fish Oil/Omega-3 Fatty Acids 1 Gm Cap PO SCH (10:33)
[2022-09-04] MEDS: Multivitamin Tab PO SCH (10:33)
[2022-09-04] MEDS: methylPREDNISolone Sodium Succinate 40 MG/1 ML SDV IVPUSH SCH (10:34)
[2022-09-04] MEDS: Finasteride 5 MG Tab PO SCH (10:34)
[2022-09-04] MEDS: Azithromycin 250 MG Tab PO SCH (10:34)
[2022-09-04] MEDS: Citalopram 20 MG Tab PO SCH (10:34)
[2022-09-04] MEDS: Insulin Glargine,Human Rec. Analog 100 Units/ML 3 ML Pen SUBCUT SCH (10:36)
[2022-09-04] MEDS: cefTRIAXone 1 GM in Sodium Chloride 0.9% 100 ML IV SCH (20:25)
[2022-09-04] MEDS: Donepezil 10 MG Tab PO SCH (20:25)
[2022-09-05] MEDS: Albuterol/Ipratropium 3.0-0.5 MG/3 ML Neb Soln NEB SCH ×4 (03:11→20:28)
[2022-09-05] MEDS: Heparin Sodium 5,000 Units/ML Vial SUBCUT SCH ×3 (06:01→21:10)
[2022-09-05] MEDS: Insulin Lispro 100 Unit/ML 3 ML KwikPen SUBCUT SCH ×4 (07:35→21:34)
[2022-09-05 07:51] LABS: HEMOGLOBIN A1C 5.7 %
[2022-09-05] MEDS: Fish Oil/Omega-3 Fatty Acids 1 Gm Cap PO SCH (08:37)
[2022-09-05] MEDS: Cyanocobalamin (Vitamin B12) 1,000 MCG Tab PO SCH (08:38)
[2022-09-05] MEDS: Azithromycin 250 MG Tab PO SCH (08:39)
[2022-09-05] MEDS: Citalopram 20 MG Tab PO SCH (08:39)
[2022-09-05] MEDS: Finasteride 5 MG Tab PO SCH (08:39)
[2022-09-05] MEDS: Multivitamin Tab PO SCH (08:39)
[2022-09-05] MEDS: Dexamethasone 6 MG TABLET PO SCH (08:39)
[2022-09-05] MEDS: Insulin Glargine,Human Rec. Analog 100 Units/ML 3 ML Pen SUBCUT SCH (08:39)
[2022-09-05] MEDS: Aspirin 81 MG Tab.EC PO SCH (08:39)
[2022-09-05] MEDS: cefTRIAXone 1 GM in Sodium Chloride 0.9% 100 ML IV SCH (20:15)
[2022-09-05] MEDS: Donepezil 10 MG Tab PO SCH (20:15)
[2022-09-06] MEDS: Albuterol/Ipratropium 3.0-0.5 MG/3 ML Neb Soln NEB SCH ×4 (03:18→20:00)
[2022-09-06] MEDS: Heparin Sodium 5,000 Units/ML Vial SUBCUT SCH ×3 (05:25→23:47)
[2022-09-06] MEDS: Insulin Lispro 100 Unit/ML 3 ML KwikPen SUBCUT SCH ×4 (07:38→22:25)
[2022-09-06] MEDS: Cyanocobalamin (Vitamin B12) 1,000 MCG Tab PO SCH (09:01)
[2022-09-06] MEDS: Azithromycin 250 MG Tab PO SCH (09:01)
[2022-09-06] MEDS: Fish Oil/Omega-3 Fatty Acids 1 Gm Cap PO SCH (09:01)
[2022-09-06] MEDS: Finasteride 5 MG Tab PO SCH (09:01)
[2022-09-06] MEDS: Citalopram 20 MG Tab PO SCH (09:01)
[2022-09-06] MEDS: Dexamethasone 6 MG TABLET PO SCH (09:01)
[2022-09-06] MEDS: Multivitamin Tab PO SCH (09:01)
[2022-09-06] MEDS: Aspirin 81 MG Tab.EC PO SCH (09:01)
[2022-09-06] MEDS: cefTRIAXone 1 GM in Sodium Chloride 0.9% 100 ML IV SCH (20:13)
[2022-09-06] MEDS: Donepezil 10 MG Tab PO SCH (20:14)
[2022-09-07] MEDS: Albuterol/Ipratropium 3.0-0.5 MG/3 ML Neb Soln NEB SCH ×2 (03:03→08:52)
[2022-09-07] MEDS: Heparin Sodium 5,000 Units/ML Vial SUBCUT SCH (06:26)
[2022-09-07] MEDS: Insulin Lispro 100 Unit/ML 3 ML KwikPen SUBCUT SCH ×2 (07:54→10:46)
[2022-09-07] MEDS: Citalopram 20 MG Tab PO SCH (08:21)
[2022-09-07] MEDS: Multivitamin Tab PO SCH (08:21)
[2022-09-07] MEDS: Dexamethasone 6 MG TABLET PO SCH (08:22)
[2022-09-07] MEDS: Finasteride 5 MG Tab PO SCH (08:22)
[2022-09-07] MEDS: Cyanocobalamin (Vitamin B12) 1,000 MCG Tab PO SCH (08:22)
[2022-09-07] MEDS: Azithromycin 250 MG Tab PO SCH (08:22)
[2022-09-07] MEDS: Aspirin 81 MG Tab.EC PO SCH (08:22)
[2022-09-07] MEDS: Fish Oil/Omega-3 Fatty Acids 1 Gm Cap PO SCH (08:23)
[2022-09-07 12:23] VITALS: BP 117/87; PULSE 90
== END 2022-09-07 13:08 | DRG 177 ==
LOC: JD.ED 16:44 → JD.ICU 18:47 → JD.MS 09-01 19:23
PROVIDERS: ADMIT Internal Medicine; ATTEND Internal Medicine
PROC: 3E0333Z Introduction of Anti-inflammatory into Peripheral Vein, Percutaneous Approach (ICD-10-PCS; principal; 2022-08-31)
DX: U07.1 COVID-19 (principal); J12.82 Pneumonia due to coronavirus disease 2019; J96.01 Acute respiratory failure with hypoxia; J44.0 Chronic obstructive pulmonary disease with (acute) lower respiratory infection; J44.1 Chronic obstructive pulmonary disease with (acute) exacerbation; G30.9 Alzheimer's disease, unspecified; I25.10 Atherosclerotic heart disease of native coronary artery without angina pectoris; G89.29 Other chronic pain; M54.9 Dorsalgia, unspecified; N40.0 Benign prostatic hyperplasia without lower urinary tract symptoms; H91.93 Unspecified hearing loss, bilateral; F02.B0 Dementia in other diseases classified elsewhere, moderate, without behavioral disturbance, psychotic disturbance, mood disturbance, and anxiety; N18.9 Chronic kidney disease, unspecified; D63.1 Anemia in chronic kidney disease; Z79.82 Long term (current) use of aspirin; Z95.1 Presence of aortocoronary bypass graft; Z79.899 Other long term (current) drug therapy
CPT/HCPCS: 36415; 71045; 71045-26; 80048; 82947; 83036; 84075; 84450; 84460; 85025; 85027; 85379; 86140; 94640; 94760; 94761; 96360; 97110-GP; 97116-GP; 97162-GP; 97166-GO; 97530-GO; 99222; 99285; 99285-25; A9270-GY; J0696; J1644; J1815; J1815-GY; J2920; J3490; J7030; J7620-GY; J8540

== ENCOUNTER 2023-08-21 19:47 | Emergency (ER) | payer MEDICARE, BC ==
[2023-08-21 19:57] VITALS: BP 101/62; PULSE 94
[2023-08-21 21:34] LABS: BASOPHILS PERCENT AUTO 0.1 % (0.0-1.0); EOSINOPHILS PERCENT AUTO 0.1 % (0.0-6.0); HEMATOCRIT 37.3 % (42.0-52.0); IMMATURE GRAN ABSOLUTE AUTO 0.11 K/mm3 (0.00-0.05); IMMATURE GRAN PERCENT AUTO 0.7 % (0.0-0.4); LYMPHOCYTES ABSOLUTE AUTO 0.6 K/mm3 (1.0-4.8); LYMPHOCYTES PERCENT AUTO 3.9 % (24.0-44.0); MEAN CORPUSCULAR HEMOGLOBIN 29.5 pg (28.0-32.0); MEAN CORPUSCULAR HGB CONC 32.2 g/dl (32.0-36.0); MEAN CORPUSCULAR VOLUME 91.6 fl (83.0-99.0); MEAN PLATELET VOLUME 10.9 fl (9.4-12.4); MONOCYTES ABSOLUTE AUTO 0.5 K/mm3 (0.0-0.8); MONOCYTES PERCENT AUTO 3.3 % (0.0-8.0); NEUTROPHILS ABSOLUTE AUTO 14.3 K/mm3 (1.8-7.7); NEUTROPHILS PERCENT AUTO 91.9 % (41.0-71.0); NRBC ABSOLUTE 0.03 (0.00-0.02); NRBC PERCENT 0.2 % (0.0-0.2); PLATELET COUNT,PLT 149 K/mm3 (150-400); RED BLOOD CELL COUNT 4.07 M/mm3 (4.52-5.90); WHITE BLOOD CELL COUNT,WBC 15.51 K/mm3 (3.9-11.3)
[2023-08-21 21:50] LABS: CORONAVIRUS COVID-19 NAA NEGATIVE (NEGATIVE); INFLUENZA A NAA NEGATIVE (NEGATIVE); RESPIRATORY SYNCYTIAL VIR NAA NEGATIVE (NEGATIVE)
[2023-08-21] MEDS: Sodium Chloride 0.9% 1,000 ML IV ONE (21:53)
[2023-08-21] MEDS: Sodium Chloride 0.9% 10 ML Syringe FLUSH PRN (21:55)
[2023-08-21 21:56] LABS: A/G RATIO 1.1 (1-2); ALBUMIN 3.5 g/dl (3.4-5.0); ANION GAP 14.7 (5-15); BILIRUBIN TOTAL 0.5 mg/dL (0.2-1.0); BUN/CREATININE RATIO 24.3 (14-18); CALCIUM 8.6 mg/dL (8.5-10.1); CREATININE 1.4 mg/dL (0.7-1.3); EST CRCL DRUG DOSING (CG) 39.11 mL/min; POTASSIUM,K 3.7 mEq/L (3.5-5.1); PROTEIN TOTAL,TP 6.8 g/dl (6.4-8.2)
== END 2023-08-22 00:10 | disposition home or self-care (01) ==
LOC: JD.ED 19:47
DX: E86.0 Dehydration (principal); R19.7 Diarrhea, unspecified; N18.9 Chronic kidney disease, unspecified; Z91.041 Radiographic dye allergy status; Z79.899 Other long term (current) drug therapy; Z86.16 Personal history of COVID-19
CPT/HCPCS: 0241U; 36415; 71045; 80053; 83605; 85025; 96360; 99285; J3490; J7030